=== PATIENT | male | born 1980 | race Caucasian/White ===

== ENCOUNTER 2023-06-13 16:45 | Inpatient (IN) | payer BC, SELFPAY ==
[2023-06-13] VITALS (24 sets, daily range): BP systolic 105–165; BP diastolic 56–103; PULSE 13–83; RESP 11–29; TEMP 36.8–37.9; O2SAT 93–100; BMI 28.7; BMI 29.2
--- NOTE | 2023-06-13 | ECG_ITS ---
Test Reason : Altered Mental Blood Pressure : / mmHG Vent. Rate : 076 BPM Atrial Rate : 076 BPM P-R Int : 162 ms QRS Dur : 102 ms QT Int : 398 ms P-R-T Axes : 062 065 041 degrees QTc Int : 447 ms Normal sinus rhythm Minimal voltage criteria for LVH, may be normal variant ( Sokolow-Spears ) Nonspecific ST and T wave abnormality Abnormal ECG When compared with ECG of 19-SEP-2018 21:21, T wave inversion now evident in Lateral leads Referred By: Christophe Pedro Electronically Signed By:DANAE CHAVEZ MD
--- NOTE | ~2023-06-13 | CT_ITS ---
EXAMINATION: CT HEAD WITHOUT CONTRAST CLINICAL INFORMATION: Change in mental status COMPARISON: None available. TECHNIQUE: Contiguous axial imaging was performed from the skull base to vertex without intravenous administration of contrast. This CT examination was performed using dose optimization techniques as appropriate, variously including the following: *Automated exposure control *Adjustment of mA and/or kV according to patient size (this includes techniques or standardized protocols for targeted exams where dose is matched to indication/reason for exam; i.e. extremities or head) *Use of iterative reconstruction technique DLP: 778 mGy-cm FINDINGS: There is no evidence of acute intracranial hemorrhage or territorial infarction. No abnormal mass effect or midline shift is seen. Martinez to white matter differentiation is well preserved. No extra-axial fluid collections are identified. The ventricles are normal in size. There is no abnormal attenuation within the brain parenchyma. The osseous structures and soft tissues are normal. Mucoperiosteal thickening bilateral maxillary and sphenoid sinuses, left greater than right. The mastoid air cells and visualized portions of the paranasal sinuses are well aerated. CT/CT head/brain wo IV con IMPRESSION: 1. No acute intracranial pathology. 2. Mucoperiosteal thickening bilateral maxillary and sphenoid sinuses, left greater than right.
--- NOTE | ~2023-06-13 | XR_ITS ---
EXAMINATION: PORTABLE CHEST 1 VIEW CLINICAL INFORMATION: Change in mental status rule out pneumonia. COMPARISON: No recent pertinent prior studies are available for comparison. TECHNIQUE: Portable frontal view of the chest was obtained. FINDINGS: The lungs are hypoexpanded with basilar markings more likely due to atelectasis. No focal infiltrate, effusion, edema, or pneumothorax. Cardiac and mediastinal silhouettes are within normal limits for technique. No acute bony abnormality seen. XR/XR chest 1V IMPRESSION: Hypoexpanded with basilar markings more likely due to atelectasis.
--- NOTE | ~2023-06-13 | MR_ITS ---
EXAMINATION: MR BRAIN WITHOUT AND WITH CONTRAST CLINICAL INFORMATION: meningitis, new onset deafness, facial droop COMPARISON: None TECHNIQUE: Multiplanar multisequence MR imaging of the brain was obtained without and following the administration of 9 mL Gadavist intravenous contrast. FINDINGS: Motion degraded examination. There is layering diffusion restricting debris within the occipital horns of the lateral ventricles, compatible with pyogenic ventriculitis. No abnormal ependymal enhancement. There is some corresponding FLAIR hyperintense signal the periventricular white matter along the occipital horns. Small regions of diffusion restriction and corresponding FLAIR hyperintense signal involving the cortex of the posterior inferior left temporal lobe, medial right occipital lobe, and right greater than left cerebellar hemispheres most prominently involving the posteromedial right cerebellar hemisphere are compatible with acute infarct and/or cerebritis. Multifocal sulcal FLAIR CSF nonsuppression, likely reflecting leptomeningitis. No definite corresponding abnormal leptomeningeal enhancement. There is no intracranial hemorrhage on iron-sensitive imaging. No extra-axial collection or mass effect/herniation. No hydrocephalus. The ventricles are normal in morphology and size. No abnormal parenchymal or extra-axial enhancement. The midline structures are normal. The cerebellar tonsils are normally positioned. The craniocervical junction is normal. Marrow signal is within normal limits. The visualized soft tissues are without significant abnormality. No signal abnormality within the paranasal sinuses or within the mastoid air cells. MR/MR head/brain wo/w con IMPRESSION: Motion degraded examination 1. Diffusion restricting layering debris within the occipital horns of the lateral ventricles is compatible with pyogenic ventriculitis. 2. Multifocal sulcal CSF FLAIR nonsuppression, likely reflecting leptomeningitis. 3. Multifocal small regions of parenchymal diffusion restriction and FLAIR hyperintense signal involving the medial right occipital lobe, posterior inferior left temporal lobe, and cerebellar hemispheres are compatible with acute infarcts and/or cerebritis. Above impression was communicated to Opal Cueto NP on 06/15/2023 9:35 PM
--- NOTE | 2023-06-13 17:03 | ECG_ITS ---
Test Reason : ALTERED MENTAL Blood Pressure : / mmHG Vent. Rate : 066 BPM Atrial Rate : 066 BPM P-R Int : 162 ms QRS Dur : 104 ms QT Int : 434 ms P-R-T Axes : 000 121 152 degrees QTc Int : 454 ms Normal sinus rhythm with sinus arrhythmia Right axis deviation Nonspecific T wave abnormality Abnormal ECG When compared with ECG of 13-JUN-2023 17:35, QRS axis Shifted right T wave inversion more evident in Lateral leads Referred By: Christophe Pedro Electronically Signed By:DANAE CHAVEZ MD
--- NOTE | 2023-06-13 17:04 | ED.AMS ---
HPI - Altered Mental Status General Chief Complaint: Altered Mental Status Stated Complaint: AMS,PSYCHOSIS,COMBATIVE Time Seen by Provider: 06/13/23 16:54 Source: family (, [place]) Mode of arrival: EMS Limitations: altered mental status History of Present Illness HPI narrative: 42-year-old male with a history of hypertension who presents emergency department for evaluation of altered mental status and delirium. The information came from his who is here in the emergency department. The patient has not been feeling well since Thursday06/10/2023 (4 days). According to his he went to work on Thursday and but did not feel well. On he came home and went to bed which was very unusual for him. He then slept all day. He may have had a subjective fever and chills at home but no other symptoms. Today, at around 13:00 he had difficulty talking and appeared to be altered. states that over the past several days he has had very little appetite but has been drinking water and Gatorade. The called an ambulance and the patient was delirious and combative and was brought in in restraints. When I evaluated him he was nonverbal, he did not respond to verbal instructions the patient had nuchal rigidity. Related Data Allergies Allergy/AdvReac Type Severity Reaction Status Date / Time diazepam [From VALIUM] Allergy Unknown UNKNOWN Unverified 01/26/20 18:24 Review of Systems Review of Systems: Yes all other systems are reviewed and are negative [facility]LY [facility] Social History Social History Household Members: Spouse Housing: House Do you presently have visiting nurse or other home services: No Patient Tobacco Use Status: Never used Tobacco Use of substances other than those prescribed or required for medical reasons: No Advance Directives: No Advance Directives Information Provided: No Recently lost weight without trying: Unsure Poor oral hygiene: No Physical Exam ED Vital Signs: Vital Signs - 24 hr 06/13/23 16:55 06/13/23 17:16 06/13/23 17:20 Temperature 98.3 F Pulse Rate 76 83 75 Respiratory Rate 28 H 16 28 H Blood Pressure 164/78 H 156/72 H 165/103 H Pulse Oximetry 98 100 100 Oxygen Delivery Method Room Air Room Air Room Air 06/13/23 17:25 06/13/23 18:42 06/13/23 18:50 Temperature Pulse Rate 68 67 70 Respiratory Rate 20 29 H 11 L Blood Pressure 147/90 H 147/73 H 105/85 Pulse Oximetry 98 100 96 Oxygen Delivery Method Room Air 06/13/23 18:57 06/13/23 19:20 06/13/23 19:25 Temperature 100 F Pulse Rate 67 73 71 Respiratory Rate 26 H 28 H 26 H Blood Pressure 123/65 134/73 115/76 Pulse Oximetry 96 93 100 Oxygen Delivery Method Room Air Room Air 06/13/23 19:35 06/13/23 19:40 06/13/23 19:45 Temperature 100.2 F 100 F 100 F Pulse Rate 73 69 13 L Respiratory Rate 26 H 27 H 27 H Blood Pressure 109/67 120/67 125/73 Pulse Oximetry 100 100 99 Oxygen Delivery Method Room Air Room Air Room Air 06/13/23 19:50 06/13/23 19:55 Temperature 100 F 99.9 F Pulse Rate 68 67 Respiratory Rate 26 H 27 H Blood Pressure 121/66 112/56 L Pulse Oximetry 99 98 Oxygen Delivery Method Room Air Room Air BMI result Body Mass Index 28.7 Vital signs were normal except for an elevated blood pressure. Exam: General: Patient is awake answering questions, he staring off into space, he is holding his arms up in the air Head: Normocephalic, atraumatic EENT: PERRL, Lids normal, sclera normal, conjunctiva normal, nose normal , ears normal, throat without erythema or exudates Neck: Neck is rigid Lung: breath sounds symmetric, no wheezing, rales or rhonchi Chest: symmetric movement, nontender Heart: regular rate and rhythm, normal S1, S2 no murmurs or rubs Abdomen: soft, non-tender, nondistended, normal bowel sounds Extremities: no deformities, patient's minimally moves his extremities in this stated above he is holding arms up in the Skin: no rashes, no lesion, normal color and warmth Neuro: Patient does not respond to verbal commands, he is nonverbal, in the emergency department he has not been combative Medications Administered Generic Name Dose Route Start Last Admin Trade Name Freq PRN Reason Stop Dose Admin Cefepime HCl 2 gm/ Sodium 50 mls @ 100 mls/hr 06/13/23 21:00 06/13/23 21:57 Chloride IV Infused Q8H MARIANELA Infusion Ampicillin Sodium 2 gm/ Sodium 100 mls @ 200 mls/hr 06/13/23 21:00 06/13/23 21:51 Chloride IV Infused Q4H MARIANELA Infusion Lactated Ringer's 1,000 mls @ 100 mls/hr 06/13/23 22:00 06/13/23 22:15 Lr IVCONT 100 mls/hr .Q10H MARIANELA Administration Discontinued Medications Generic Name Dose Route Start Last Admin Trade Name Freq PRN Reason Stop Dose Admin Enoxaparin Sodium 40 mg 06/13/23 20:00 06/13/23 21:21 Enoxaparin Sodium 40 Mg/0.4 Ml Syringe SUBCUT Not Given Q24H MARIANELA Haloperidol Lactate 5 mg 06/13/23 17:01 06/13/23 17:09 Haloperidol Lactate 5 Mg/Ml Vial IVPUSH 06/13/23 17:02 5 mg ONCE ONE Administration Haloperidol Lactate 5 mg 06/13/23 17:17 06/13/23 17:34 Haloperidol Lactate 5 Mg/Ml Vial IVPUSH 06/13/23 17:18 5 mg STAT STA Administration Sodium Chloride 1,000 mls @ 999 mls/hr 06/13/23 17:03 06/13/23 17:53 Ns IV 06/13/23 18:03 Infused .Q1H1M STA Infusion Ceftriaxone Sodium 2 gm/ 50 mls @ 100 mls/hr 06/13/23 17:06 06/13/23 18:00 Sodium Chloride IV 06/13/23 17:35 Infused ONCE STA Infusion Sodium Chloride 2,721.54 mls @ 2,721.54 mls/hr 06/13/23 17:29 06/13/23 20:03 Ns 30 ml/kg infuse over 1 hr (2721.54 ml) 06/13/23 18:28 Infused IV Infusion .Q1H STA Potassium Chloride 10 meq in 100 mls @ 100 mls/hr 06/13/23 18:00 06/13/23 20:03 Potassium Chloride/H20 IV 06/13/23 19:59 Infused Q1H MARIANELA Infusion Vancomycin HCl 2,000 mg in 520 mls @ 250 mls/hr 06/13/23 19:01 06/13/23 22:18 Vancomycin/Ns IV 06/13/23 21:05 Infused ONCE ONE Infusion Acyclovir Sodium 800 mg/ 266 mls @ 266 mls/hr 06/13/23 19:02 06/13/23 21:19 Sodium Chloride IV 06/13/23 19:03 Infused ONCE ONE Infusion Ketamine HCl 100 mg 06/13/23 18:22 06/13/23 20:01 Ketamine Hcl/Ns 50 Mg/5 Ml Syringe IVPUSH 06/13/23 18:23 Not Given ONCE ONE Midazolam HCl 4 mg 06/13/23 17:01 06/13/23 17:10 Midazolam Hcl/Pf 2 Mg/2 Ml Vial IVPUSH 06/13/23 17:02 4 mg ONCE ONE Administration Medical Decision Making Medical Decision Making MDM Narrative: 42-year-old male with a history of hypertension who presents emergency department for evaluation of altered mental status and delirium. Patient has been sick for approximately 4 days with possible viral-like illness with delirium that started today, patient was combative initially but here in the emergency department was awake, altered and cooperative. He is nonverbal and not following commands. He does have nuchal rigidity. His exam is otherwise unremarkable. At this time I am concerned the patient may have bacterial versus viral meningitis. Differential diagnosis: Includes was not limited to bacterial meningitis, viral meningitis, encephalitis, electrolyte abnormalities, anemia, alcohol intoxication, drug use disorder Following evaluation was ordered: CT scan of the brain without IV contrast, chest x-ray one view, CBC, CMP, lipase, troponin, TSH with reflex T4, ESR, ethanol level, lactic acid, PTT, COVID, influenza, RSV, urinalysis, urine osmolality, serum osmolality, lactic acid, blood cultures x2. Meningitis/ encephalitis panel, CSF glucose, CSF protein, Gram stain Patient was treated with the following: Normal saline bolus 30 cc/kilogram, ceftriaxone 2 g IV, vancomycin 2 g IV, acyclovir 10 milligrams/kilogram (800 mg IV), Haldol 5 mg IV x2, Versed 4 mg IV x1 19:19 My interpretation patient's laboratory evaluation is as follows: WBC elevated 18,600 with 87 neutrophils and on 3 lymphocytes. Sodium low 126, bicarb low 15, glucose elevated 197. Calcium low 7.6. LFTs were normal. Urinalysis revealed positive protein, positive glucose, positive blood negative nitrates negative leukocyte esterase. Microscopic was unremarkable with no bacteria seen. Urine drug screen was positive for benzodiazepines but the patient did receive Versed IV for sedation. Alcohol was below detectable limits. COVID-19, influenza and RSV were negative. CSF WBCs elevated 253 with 88% neutrophils and 3% lymphocytes, 9% monocytes. CSF glucose was below detectable limits CSF protein was elevated at 661. G stain revealed no organisms. CT scan of the brain revealed no acute abnormalities Chest x-ray revealed no evidence of pneumonia The case was discussed with the bilingual call center representative and the patient will be admitted to the intensive care unit for further management and diagnostic workup for meningitis. Please note that the patient did not receive ketamine for procedural sedation since I was able to do the lumbar puncture with the initial sedated with Haldol 10 mg IV and Versed 4 mg IV that was given upon the patient's arrival to the emergency department. Admission/Observation Consideration of admission/observation: Escalation of care including admission/observation considered Consult Healthcare Provider Management of the patient was discussed with: Igniter Assembler (Maintenance Technician 2Nd Shift, Dr. Reid) Lab Data MDM Lab Attestation statement: I reviewed the patient's lab results. 06/13/23 22:02 06/13/23 22:02 Labs: Lab Results 06/13/23 06/13/23 06/13/23 Range/Units 17:06 17:07 17:08 WBC 18.6 H (4.8-10.8) X10*3/uL RBC 3.85 L (4.60-5.80) X10*6/uL Hgb 12.0 L (14.0-18.0) g/dl Hct 33.0 L (42.0-52.0) % MCV 85.7 (80.0-98.0) fL MCH 31.2 (27.0-33.0) pg MCHC 36.4 H (31.0-36.0) g/dl RDW 12.9 (11.0-16.0) % Plt Count 153 L (160-400) X10*3/uL MPV 9.6 (9.4-12.4) fL Immature Gran % (Auto) 0.5 H (0.0-0.4) % Neut % (Auto) 87.5 H (45-73) % Lymph % (Auto) 3.5 L (20-40) % [place] % (Auto) 8.1 (2-11) % Eos % (Auto) 0.1 (0-4) % Baso % (Auto) 0.3 (0-2) % Lymph # (Auto) 0.7 L (1.2-4.9) X10*3/uL [place] # (Auto) 1.5 H (0.1-1.2) X10*3/uL Eos # (Auto) 0.0 (0.0-0.4) X10*3/uL Baso # (Auto) 0.1 (0.0-0.2) X10*3/uL Abs Immat Gran (auto) 0.09 H (0.00-0.03) X10*3/uL Absolute Neuts (auto) 16.3 H (2.0-8.3) x10*3/uL Absolute Nucleated RBC 0.000 (0.0-0.012) X10*3/uL Nucleated RBC % (auto) 0.0 (0.0-0.2) /100WBC Smear Tech's Comments VERIFIED ESR 81 H (0-15) MM/HR PT 12.8 (11.1-13.3) SEC INR 1.1 (0.9-1.1) APTT 24.3 L (26.0-36.8) SEC Sodium 126 L (135-145) mmol/L Potassium 2.9 L* (3.3-5.1) mmol/L Chloride 91 L (96-108) mmol/L Carbon Dioxide 15 L (22-29) mmol/L Anion Gap 23 H (12-20) BUN 13 (9-16) mg/dL Creatinine 0.93 (0.5-1.4) mg/dL Estim Creat Clear Calc 119.6 Estimated GFR > 60 Random Glucose 214 H (60-115) mg/dL Osmolality (281-305) mosm/kg Lactic Acid 6.8 H* (0.5-2.0) mmol/L Lactic Acid F/U @ 2Hr (0.5-2.0) mmol/L Calcium 8.6 (8.4-10.2) mg/dL Phosphorus 1.9 L (2.7-4.5) mg/dL Magnesium 1.8 (1.6-2.6) mg/dL Total Bilirubin 0.8 (0.0-1.0) mg/dL AST 27 (5-37) U/L ALT 20 (0-40) U/L Alkaline Phosphatase 51 (39-117) U/L Total Creatine Kinase 144 (38-174) U/L Troponin I High Sens 18.5 (<3.5-35.0) ng/L Total Protein 7.7 (6.5-8.0) g/dL Albumin 3.8 (3.5-5.0) g/dL Lipase 6 L (8-78) U/L TSH 0.82 (0.32-4.0) uIU/mL Urine Color Urine Appearance Urine pH (5.0-9.0) Ur Specific [place] (1.005-1.025) Urine Protein (Neg-Trace) mg/dL Urine Glucose (UA) (Negative) mg/dL Urine Ketones (Negative) mg/dL Urine Blood (Negative) Urine Nitrite (Negative) Ur Leukocyte Esterase (Negative) Urine RBC (0-2) /HPF Urine WBC (0-5) /HPF Ur Squamous Epith Cells (0-2) /HPF Urine Bacteria (None Seen) Hyaline Casts (0-2) /LPF Urine Osmolality (373-1093) mosm/kg Ur Random Sodium mmol/L CSF Tube Number CSF Volume ML CSF Appearance CSF Color CSF WBC MM*3 CSF RBC MM*3 CSF Neutrophils % CSF Lymphocytes % CSF Monocytes % % CSF Appearance (b) CSF Glucose mg/dL CSF Total Protein (15-45) mg/dL Urine Opiates Screen (Not Detect) Urine Fentanyl Screen (Not Detect) Ur Barbiturates Screen (Not Detect) Ur Phencyclidine Scrn (Not Detect) Ur Amphetamines Screen (Not Detect) U Benzodiazepines Scrn (Not Detect) Urine Cocaine Screen (Not Detect) U Marijuana (THC) Screen (Not Detect) Ethyl Alcohol < 10 mg/dL Influenza Type A (ANDREW) Negative (Negative) Influenza Type A (PCR) (Negative) Influenza Type B (ANDREW) Negative (Negative) Influenza Type B (PCR) (Negative) Influenza A & B Note See Note RSV RNA Qual (PCR) (Negative) SARS-CoV-2 RNA (RT-PCR) (Negative) 06/13/23 06/13/23 06/13/23 Range/Units 19:03 19:03 19:35 WBC (4.8-10.8) X10*3/uL RBC (4.60-5.80) X10*6/uL Hgb (14.0-18.0) g/dl Hct (42.0-52.0) % MCV (80.0-98.0) fL MCH (27.0-33.0) pg MCHC (31.0-36.0) g/dl RDW (11.0-16.0) % Plt Count (160-400) X10*3/uL MPV (9.4-12.4) fL Immature Gran % (Auto) (0.0-0.4) % Neut % (Auto) (45-73) % Lymph % (Auto) (20-40) % Bradford % (Auto) (2-11) % Eos % (Auto) (0-4) % Baso % (Auto) (0-2) % Lymph # (Auto) (1.2-4.9) X10*3/uL [place] # (Auto) (0.1-1.2) X10*3/uL Eos # (Auto) (0.0-0.4) X10*3/uL Baso # (Auto) (0.0-0.2) X10*3/uL Abs Immat Gran (auto) (0.00-0.03) X10*3/uL Absolute Neuts (auto) (2.0-8.3) x10*3/uL Absolute Nucleated RBC (0.0-0.012) X10*3/uL Nucleated RBC % (auto) (0.0-0.2) /100WBC Smear Tech's Comments ESR (0-15) MM/HR PT (11.1-13.3) SEC INR (0.9-1.1) APTT (26.0-36.8) SEC Sodium (135-145) mmol/L Potassium (3.3-5.1) mmol/L Chloride (96-108) mmol/L Carbon Dioxide (22-29) mmol/L Anion Gap (12-20) BUN (9-16) mg/dL Creatinine (0.5-1.4) mg/dL Estim Creat Clear Calc Estimated GFR Random Glucose (60-115) mg/dL Osmolality 269 L (281-305) mosm/kg Lactic Acid (0.5-2.0) mmol/L Lactic Acid F/U @ 2Hr 2.0 (0.5-2.0) mmol/L Calcium (8.4-10.2) mg/dL Phosphorus (2.7-4.5) mg/dL Magnesium (1.6-2.6) mg/dL Total Bilirubin (0.0-1.0) mg/dL AST (5-37) U/L ALT (0-40) U/L Alkaline Phosphatase (39-117) U/L Total Creatine Kinase (38-174) U/L Troponin I High Sens (<3.5-35.0) ng/L Total Protein (6.5-8.0) g/dL Albumin (3.5-5.0) g/dL Lipase (8-78) U/L TSH (0.32-4.0) uIU/mL Urine Color Yellow Urine Appearance Clear Urine pH 6.0 (5.0-9.0) Ur Specific [place] 1.020 (1.005-1.025) Urine Protein 30 (1+) H (Neg-Trace) mg/dL Urine Glucose (UA) >=1000 H (Negative) mg/dL Urine Ketones >=160 (Negative) mg/dL Urine Blood Small (1+) H (Negative) Urine Nitrite Negative (Negative) Ur Leukocyte Esterase Negative (Negative) Urine RBC 0-2 (0-2) /HPF Urine WBC 0-5 (0-5) /HPF Ur Squamous Epith Cells 0-2 (0-2) /HPF Urine Bacteria None Seen (None Seen) Hyaline Casts 0-2 (0-2) /LPF Urine Osmolality 532 (373-1093) mosm/kg Ur Random Sodium 116.0 mmol/L CSF Tube Number 2 4 CSF Volume 1.0 ML CSF Appearance CLOUDY CSF Color YELLOW CSF WBC 253 H* MM*3 CSF RBC 151 MM*3 CSF Neutrophils 88 % CSF Lymphocytes 3 % CSF Monocytes % 9 % CSF Appearance (b) Hazy CSF Glucose < 3 mg/dL CSF Total Protein 661.2 H (15-45) mg/dL Urine Opiates Screen Not Detected (Not Detect) Urine Fentanyl Screen Not Detected (Not Detect) Ur Barbiturates Screen Not Detected (Not Detect) Ur Phencyclidine Scrn Not Detected (Not Detect) Ur Amphetamines Screen Not Detected (Not Detect) U Benzodiazepines Scrn POSITIVE H (Not Detect) Urine Cocaine Screen Not Detected (Not Detect) U Marijuana (THC) Screen Not Detected (Not Detect) Ethyl Alcohol mg/dL Influenza Type A (ANDREW) (Negative) Influenza Type A (PCR) NEGATIVE (Negative) Influenza Type B (ANDREW) (Negative) Influenza Type B (PCR) NEGATIVE (Negative) Influenza A & B Note RSV RNA Qual (PCR) NEGATIVE (Negative) SARS-CoV-2 RNA (RT-PCR) NEGATIVE (Negative) Independent Interpretation I performed an independent interpretation of an: Plain X-Ray Interpretation: My independent interpretation patient's chest x-ray is as follows: No acute disease Radiology Impression Discussion of test interpretation with radiology: I have reviewed the radiologist's reading. Radiologist Impression: CT head/brain wo IV con IMPRESSION: 1. No acute intracranial pathology. 2. Mucoperiosteal thickening bilateral maxillary and sphenoid sinuses, left greater than right. Dictated By: Jesus Manuel Kidd MD XR chest 1V IMPRESSION: Hypoexpanded with basilar markings more likely due to atelectasis. Dictated By: Giovanny De Leon MD Independent Historian Clinical information obtained from an independent historian. History obtained from or confirmed by: Spouse and Parent Procedures Lumbar Puncture Time Out Performed: No Patient Position: left lateral decubitus Skin Prep: Povidone-Iodine 1% Local Anesthetic: lidocaine 1% Amount of anesthesia used (mL): 3 Spinal Needle Gauge: 20G Interspace Used: L4-L5 Fluid Initially Obtained: cloudy Complications: none Critical Care Time Critical Care Time Critical Care Time: Yes Total Critical Care Time: 45 Attestation: Critical Care: The patient was critically ill with a high probability of imminent or life threatening deterioration. I spent greater than 30 minutes of discontinuous time evaluating the patient,delivering critical care at the bedside, discussing and evaluating pertinent data with consultants. Critical care time does not include time spent performing separately billable procedures or teaching. Total time spent performing critical care was 45 minutes. Discharge Plan Discharge Clinical Impression: Bacterial meningitis Patient Disposition: Admitted As Inpatient Interventions: Admission Worksheet (ED) Last Done: 06/13/23 20:50 Discharge Date/Time: 06/13/23 20:50
[2023-06-13] MEDS: Haloperidol Lactate 5 MG/ML VIAL IVPUSH ×2 (17:09→17:34)
[2023-06-13] MEDS: Midazolam HCl/PF 2 MG/2 ML VIAL 4 MG IVPUSH (17:10)
[2023-06-13 17:14] LABS: Basophils Absolute Auto 0.1 X10*3/uL (0.0-0.2); Basophils Percent Auto 0.3 % (0-2); Eosinophils Percent Auto 0.1 % (0-4); Imm Gran Abs Auto 0.09 X10*3/uL (0.00-0.03); Imm Gran Pct Auto 0.5 % (0.0-0.4); Lymphocytes Absolute Auto 0.7 X10*3/uL (1.2-4.9); Lymphocytes Percent Auto 3.5 % (20-40); MANUAL DIFF FLAG SCAN; Mean Corpuscular HGB Conc 36.4 g/dl (31.0-36.0); Mean Corpuscular Hemoglobin 31.2 pg (27.0-33.0); Mean Corpuscular Volume 85.7 fL (80.0-98.0); Mean Platelet Volume 9.6 fL (9.4-12.4); Monocytes Absolute Auto 1.5 X10*3/uL (0.1-1.2); Monocytes Percent Auto 8.1 % (2-11); Neutrophils Absolute Auto 16.3 x10*3/uL (2.0-8.3); Neutrophils Percent Auto 87.5 % (45-73); Platelet Count 153 X10*3/uL (160-400); Red Blood Count 3.85 X10*6/uL (4.60-5.80); Red Cell Distribution Width 12.9 % (11.0-16.0); SCAN SMEAR FLAG 1; White Blood Count 18.6 X10*3/uL (4.8-10.8)
[2023-06-13] MEDS: 0.9 % Sodium Chloride 1,000 ML 999 ML IV (17:16)
[2023-06-13 17:24] LABS: Partial Thromboplastin Time 24.3 SEC (26.0-36.8)
[2023-06-13] MEDS: cefTRIAXone sodium 2 GM in 0.9 % Sodium Chloride 50 ML IV (17:28)
[2023-06-13 17:29] LABS: Lactic Acid 6.8 mmol/L (0.5-2.0)
[2023-06-13] MEDS: 0.9 % Sodium Chloride 2,721.54 ML 2721.54 ML IV (17:30)
[2023-06-13 17:31] LABS: Alanine Aminotransferase 20 U/L (0-40); Albumin Level 3.8 g/dL (3.5-5.0); Alkaline Phosphatase 51 U/L (39-117); Anion Gap 23 (12-20); Aspartate Amino Transferase 27 U/L (5-37); Bilirubin Total 0.8 mg/dL (0.0-1.0); Blood Urea Nitrogen 13 mg/dL (9-16); Calcium 8.6 mg/dL (8.4-10.2); Carbon Dioxide 15 mmol/L (22-29); Chloride 91 mmol/L (96-108); Creatinine Clr Calc Pharmacy 119.6; Estimated Glomerular Filt Rate > 60; Ethanol < 10 mg/dL; Glucose Random 214 mg/dL (60-115); Lipase 6 U/L (8-78); Potassium 2.9 mmol/L (3.3-5.1); Sodium 126 mmol/L (135-145); Total Protein 7.7 g/dL (6.5-8.0)
[2023-06-13 17:36] LABS: Troponin-I High Sensitivity 18.5 ng/L (<3.5-35.0)
[2023-06-13 17:46] LABS: IDNOW Serial# 58CA691E; Influenza A Negative (Negative); Influenza B2 Negative (Negative)
[2023-06-13 17:52] LABS: SLIDE REVIEW VERIFIED
[2023-06-13] MEDS: Potassium Chloride/H20 10 MEQ/100 ML PIGGYBACK 100 MEQ IV ×2 (17:55→18:55)
[2023-06-13 19:11] LABS: Reflex Lactate? Lactic Acid Added
--- NOTE | 2023-06-13 19:30 | PC.NURSE ---
assumed care of pt 1899. Dr. Nazario completed bedside LP. 06/12 IV K hung IVF infusing. temp sensing guerra placed afebrile. vss. pt responsive to painful stimuli. resp even and unlabored. pt repositioned in bed. labs obtained by [facility]. urine sent to lab. restraints off when assumed care. skin intact.
[2023-06-13 19:40] LABS: TSH reflex Free T4 0.82 uIU/mL (0.32-4.0)
[2023-06-13 19:41] LABS: Appearance CSF CLOUDY; CSF Tube # 4
[2023-06-13 19:42] LABS: Color CSF YELLOW; Red Blood Cell CSF 151 MM*3
[2023-06-13 19:49] LABS: CSF Appearance Hazy; CSF Tube # 2
[2023-06-13 19:52] LABS: White Blood Cell CSF 253 MM*3
[2023-06-13 19:53] LABS: CSF Monos 9 %; Lymphocytes CSF 3 %; Neutrophils CSF 88 %
[2023-06-13 20:07] LABS: Influenza A PCR NEGATIVE (Negative); Influenza B PCR NEGATIVE (Negative); Resp Syncy Virus RNA Qual PCR NEGATIVE (Negative); SARS COV2 PCR INHOUSE NEGATIVE (Negative)
[2023-06-13 20:10] LABS: Osmolality, Serum 269 mosm/kg (281-305)
[2023-06-13 20:10] LABS: Glucose CSF < 3 mg/dL; Osmolality Urine 532 mosm/kg (373-1093); Total Protein CSF 661.2 mg/dL (15-45)
--- NOTE | 2023-06-13 20:21 | PC.NURSE ---
pt medicated per mar.
--- NOTE | 2023-06-13 20:24 | PM.CCHP ---
History of Present Illness Date of Service: 06/13/23 Attending physician on admission: Mirna Reid Chief Complaint: Acute Sepsis and Baterial meningitis HPI: ?Patient is a 42-year-old male with underlying history of hypertension, who presented via EMS due to altered mental status and delirium as reported by his in the emergency room.? Reportedly patient had been feeling sick for the past 4 days, he had been feeling weak and tired, had low appetite but had been drinking water and Gatorade. ?and came back from work which is unusual from him.? Had slept a whole day on and reported having some fever and chills.? Today apparently around 01:00 o'clock in the afternoon he had some difficulty talking appeared to be confused, she then called the ambulance.? ER personnel noted the patient was nonverbal and had nuchal rigidity.? Otherwise hemodynamically stable. In the emergency room his workup revealed a white count of 18.6, which then increased to 9.6 with 35% bands, ESR of 81, sodium of 126, potassium 2.9, chloride 91, BUN 13, creatinine 0.98, osmolality 269, lactic acid 6.8 followed by 2.0, phosphorus 1.9, magnesium 1.8.? CT scan of the head revealed no intracranial abnormalities, he did have an LP done which according to ER physician's report is showed very cloudy CSF, it is further analysis reveals 253 MM*3 per high-power field, total protein 661, glucose less than 3; all of which is concerning for acute bacterial meningitis. Patient was treated with acyclovir, Rocephin vancomycin.? He was given 3 L of fluid.? Given his significant agitation Haldol and Versed had been given, were then called for admission. During my evaluation, the patient is completely obtunded, nonverbal and heart rate response to any verbal stimuli including sternal rub. ROS:? Unable to obtain Past Medical History:? As above Past Surgical History:? None per records Family history:? Noncontributory Social History:? Lives at? at home with his , no history of tobacco, alcohol or drugs. CODE STATUS: FULL CODE Allergies: ?Volume (unknown) Home Medications: See Med Rec Sepsis PHYSICAL EXAM done at a p.m.: VS: ?112/56, 67, 27, 98% on room air, 99.9. General:? Completely obtunded, responds minimally to painful stimuli, breathing on his own, no distress. Skin:? Intact, no lesions, edema, erythema, clubbing or cyanosis.? No ulcers. HEENT:? Head is normocephalic, atraumatic, pupils equal round reactive to light accommodation bilaterally.? Extraocular movements appear intact.? Buccal mucosa is moist, Neck is supple without lymphadenopathy. Cardiac:? Clear S1-S2, no murmurs rubs or gallops. Pulmonary:? Clear to auscultation, no wheezes, rales or rhonchi. Abdomen:? Protuberant, positive bowel sounds in all 4 quadrants.? Soft, nontender, no rebound or guarding.? Musculoskeletal:? There is no voluntary movement of the extremities.? Passive range of motion of the upper and lower extremities at the major joints reveals no cogwheeling and no crepitus.? There is no asymmetry or leg edema. Neurologic:? As above, unable to further assess. Vascular:? 2+ pulses upper and lower extremities distally. ?Less than 2nd capillary refill of the finger and toes bilaterally upper and lower extremities. SIGNIFICANT LABORATORY DATA:? As above REVIEW OF IMAGES: Head CT IMPRESSION: 1. No acute intracranial pathology. 2. Mucoperiosteal thickening bilateral maxillary and sphenoid sinuses, left greater than right. CHEST X-RAY IMPRESSION Hypoexpanded lungs with basilar markings more likely due to atelectasis. EKG REVIEW: ?To my view this is sinus rhythm 66 beats per minute.? There is no ST elevations, no ST depressions.? QTC 454. ASSESSMENT : 1.Acute severe sepsis without shock 2. Acute bacterial meningitis rule out viral component 3. Toxic/metabolic encephalopathy due to the above 4. Lactic acidosis due to above 5. Acute hypokalemia 6. Hypoosmolar hypovolemic hyponatremia 7. Hypoalbuminemia 8. Hypophosphatemia 9. Pseudo hypocalcemia with corrected level of 8.96 10. Proteinuria and glucosuria 11. Bilateral maxillary and sphenoid sinusitis left greater than right (questionable if this could be the source) PLAN OF CARE: Patient will be admitted to the ICU, monitor vital signs, I and O's, so far his hemodynamically stable but if this changes he will be started on vasopressors, given history of underlying splenectomy, the patient will be treated with Unasyn, vancomycin, cefepime and acyclovir.? Will await CSF studies and add Lyme testing, listeria studies. Will replace potassium, phosphorus, and albumin.? Will place him on LR for maintenance fluids. If no actual source is found, perhaps seeing him for HIV may be necessary.? Repeat labs in the morning and consult Infectious Disease. One CSF culture and Gram stain his available, antibiotic coverage may be narrowed.? Although we should keep in mind his bilateral sinusitis. GI PROPHYLAXIS:? IV ppi DVT PROPHYLAXIS:? Pneumatic stockings only, will avoid blood thinners for the next 24-48 hours given recent LP. Sepsis follow-up focused exam 2 a.m. 06/14/2023 144/77, 69, 27, 96% on room air Obtunded in no acute distress, responds to painful stimuli. Skin unchanged. Clear S1-S2 no murmurs rubs gallops. Clear lungs bilaterally. Abdomen soft and nontender. There is no voluntary musculoskeletal movement. Vascular 2+ pulses bilaterally upper and lower extremities, less than 2nd capillary refill of the finger and toes upper and lower extremities. Neuro unchanged. At this time, the 1st results of the CSF culture and Gram stain reveals strep pneumo organisms, the patient will continue with the above-mentioned broad-spectrum antibiotics and will discuss the possibility of narrowing them down with Dr. Reid in the morning. Critical care time used for critical evaluation of this patient, diagnosis, treatment and coordination of care, review her records and documentation TOTAL CRITICAL CARE TIME 120 ?MIN . discussion and coordination with consultants, completely separate from any procedures performed. Patient's care was discussed in detail with Dr. Reid is aware of all the above as well as the plan of care for this patient. [facility] Surgical History Surgical History (Updated 06/14/23 @ 02:03 by Toyin Hooks RN) H/O splenectomy Social History Social History Household Members: Spouse Housing: House Do you presently have visiting nurse or other home services: No Patient Tobacco Use Status: Never used Tobacco Use of substances other than those prescribed or required for medical reasons: No Currently Displaying Signs/Symptoms of Drug Intoxication Withdrawal: No Advance Directives: No Advance Directives Information Provided: No Recently lost weight without trying: Unsure Poor oral hygiene: No service: No Meds Allergies Allergy/AdvReac Type Severity Reaction Status Date / Time diazepam [From VALIUM] Allergy Unknown UNKNOWN Unverified 01/26/20 18:24 Active Medications: Current Medications Enoxaparin Sodium (Enoxaparin Sodium 40 Mg/0.4 Ml Syringe) 40 mg SUBCUT Q24H MARIANELA Vancomycin HCl (Vancomycin/Ns) 2,000 mg in 520 mls @ 250 mls/hr IV ONCE ONE Stop: 06/13/23 21:05 Last Admin: 06/13/23 20:03 Dose: 250 mls/hr Cefepime HCl 2 gm/ Sodium (Chloride) 50 mls @ 100 mls/hr IV Q8H MARIANELA Ampicillin Sodium 2 gm/ Sodium (Chloride) 100 mls @ 200 mls/hr IV Q4H MARIANELA Acyclovir Sodium 800 mg/ (Sodium Chloride) 266 mls @ 266 mls/hr IV Q8H MARIANELA Pantoprazole Sodium (Pantoprazole Sodium 40 Mg/10 Ml Vial) 40 mg IVPUSH DAILY@0630 [facility] Pharmacy Consult (Consult Rx Vancomycin Dosing) 1 each MISCELLANE DAILY PRN PRN Reason: Consult order Home Medications Medication Instructions Recorded Confirmed Last Taken Type amlodipine 5 mg-valsartan 160 mg 1 tab PO DAILY 06/14/23 06/14/23 Unknown History tablet Physical Exam Vital Signs: Vital Signs: Last Vital Signs Temp 99.5 F 06/13/23 20:17 Pulse 65 06/13/23 20:17 Resp 22 H 06/13/23 20:17 BP 129/70 06/13/23 20:17 Pulse Ox 97 06/13/23 20:17 O2 Del Method Room Air 06/13/23 20:17 BMI result Body Mass Index 28.7 Results Labs 06/14/23 04:43 06/14/23 11:06 Labs: Laboratory Results - last 24 hr 06/13/23 06/13/23 06/13/23 17:06 17:07 17:08 MCV 85.7 MCH 31.2 MCHC 36.4 H RDW 12.9 Plt Count 153 L MPV 9.6 Immature Gran % (Auto) 0.5 H Neut % (Auto) 87.5 H Lymph % (Auto) 3.5 L Ell[place] % (Auto) 8.1 Eos % (Auto) 0.1 Baso % (Auto) 0.3 Lymph # (Auto) 0.7 L Ell[place] # (Auto) 1.5 H Eos # (Auto) 0.0 Baso # (Auto) 0.1 Abs Immat Gran (auto) 0.09 H Absolute Neuts (auto) 16.3 H Absolute Nucleated RBC 0.000 Nucleated RBC % (auto) 0.0 Smear Tech's Comments VERIFIED APTT 24.3 L Anion Gap 23 H Estim Creat Clear Calc 119.6 Estimated GFR > 60 Random Glucose 214 H Osmolality Lactic Acid 6.8 H* Lactic Acid F/U @ 2Hr Calcium 8.6 Total Bilirubin 0.8 AST 27 ALT 20 Alkaline Phosphatase 51 Total Creatine Kinase 144 Total Protein 7.7 Albumin 3.8 Lipase 6 L TSH 0.82 Urine Osmolality Ur Random Sodium CSF Tube Number CSF Volume CSF Appearance CSF Color CSF WBC CSF RBC CSF Neutrophils CSF Lymphocytes CSF Monocytes % CSF Appearance (b) CSF Glucose CSF Total Protein Ethyl Alcohol < 10 Influenza Type A (ANDREW) Negative Influenza Type A (PCR) Influenza Type B (ANDREW) Negative Influenza Type B (PCR) Influenza A & B Note See Note RSV RNA Qual (PCR) SARS-CoV-2 RNA (RT-PCR) 06/13/23 06/13/23 06/13/23 19:03 19:03 19:35 MCV MCH MCHC RDW Plt Count MPV Immature Gran % (Auto) Neut % (Auto) Lymph % (Auto) Ellsworth % (Auto) Eos % (Auto) Baso % (Auto) Lymph # (Auto) Ellsworth # (Auto) Eos # (Auto) Baso # (Auto) Abs Immat Gran (auto) Absolute Neuts (auto) Absolute Nucleated RBC Nucleated RBC % (auto) Smear Tech's Comments APTT Anion Gap Estim Creat Clear Calc Estimated GFR Random Glucose Osmolality 269 L Lactic Acid Lactic Acid F/U @ 2Hr 2.0 Calcium Total Bilirubin AST ALT Alkaline Phosphatase Total Creatine Kinase Total Protein Albumin Lipase TSH Urine Osmolality 532 Ur Random Sodium 116.0 CSF Tube Number 2 4 CSF Volume 1.0 CSF Appearance CLOUDY CSF Color YELLOW CSF WBC 253 H* CSF RBC 151 CSF Neutrophils 88 CSF Lymphocytes 3 CSF Monocytes % 9 CSF Appearance (b) Hazy CSF Glucose < 3 CSF Total Protein 661.2 H Ethyl Alcohol Influenza Type A (ANDREW) Influenza Type A (PCR) NEGATIVE Influenza Type B (ANDREW) Influenza Type B (PCR) NEGATIVE Influenza A & B Note RSV RNA Qual (PCR) NEGATIVE SARS-CoV-2 RNA (RT-PCR) NEGATIVE Imaging Radiologist's Impressions: Impressions Head CT 06/13/23 17:56 IMPRESSION: 1. No acute intracranial pathology. 2. Mucoperiosteal thickening bilateral maxillary and sphenoid sinuses, left greater than right. Chest X-Ray 06/13/23 18:00 IMPRESSION: Hypoexpanded with basilar markings more likely due to atelectasis.
[2023-06-13 20:28] LABS: INTERNATIONAL NORM RATIO 1.1 (0.9-1.1); Prothrombin Time 12.8 SEC (11.1-13.3)
--- NOTE | 2023-06-13 20:36 | PHA.PROG ---
Admission Date/Time: Indication: [employer] Weight in k.718 kg Serum Creatinine - Last 168 Hours 06/13/23 17:07 Creatinine 0.93 Estimated CrCl and GFR - Last 168 Hours 06/13/23 17:07 Estim Creat Clear Calc 119.6 Estimated GFR > 60 Vancomycin Loading Dose: 2000 Current Vancomycin Dosing Regimen: 1250 Vancomycin Monitoring using AUC goal of 400 - 600 range with trough as surrogate marker: 503 Date and Time for next Vancomycin Level to be drawn: @ 0600 Pharmacist Comments on Vancomycin Plan: Vancomycin dosing will take advantage of [employer] Int as a clinical decision support tool that uses Bayesian modeling to calculate individual patient's pharmacokinetic parameters and forecast the patient's drug concentration time course with the target goal AUC 24 range of 400 - 600 mg/L/hr.
[2023-06-13 20:44] LABS: Magnesium 1.8 mg/dL (1.6-2.6); Phosphorus 1.9 mg/dL (2.7-4.5)
--- NOTE | 2023-06-13 20:47 | PC.NURSE ---
report given to agricultural equipment sales manager.
[2023-06-13 21:04] LABS: Appearance Urine Clear; Color Urine Yellow; Glucose Urine UA >=1000 mg/dL (Negative); Leukocyte Esterase Urine Negative (Negative); Nitrite Urine Negative (Negative); UMIC TRIGGER UACC YES; Urine Blood Small (1+) (Negative); Urine Ketones >=160 mg/dL (Negative); Urine Protein 30 (1+) mg/dL (Neg-Trace)
[2023-06-13 21:08] LABS: Amphetamine Screen Urine Not Detected (Not Detect); Barbiturates, Urine Not Detected (Not Detect); Benzodiazepines Screen Urine POSITIVE (Not Detect); Cannabinoid Screen Urine Not Detected (Not Detect); Cocaine Screen Urine Not Detected (Not Detect); Fentanyl, urine Not Detected (Not Detect); Opiate Screen Urine Not Detected (Not Detect); Phencyclidine Screen Urine Not Detected (Not Detect)
[2023-06-13 21:12] LABS: Bacteria Urine None Seen (None Seen); Hyaline Casts Urine 0-2 /LPF (0-2); RBC Urine 0-2 /HPF (0-2); Squamous Epithelial Cell Urine 0-2 /HPF (0-2); WBC Urine 0-5 /HPF (0-5)
[2023-06-13] MEDS: Ampicillin Sodium 2 GM in 0.9 % Sodium Chloride 100 ML IV (21:20)
[2023-06-13 21:23] LABS: Erythrocyte Sedimentation Rate 81 MM/HR (0-15)
[2023-06-13] MEDS: cefEPime HCl 2 GM in 0.9 % Sodium Chloride 50 ML IV (21:27)
[2023-06-13 22:14] LABS: Prothrombin Time 12.4 SEC (11.1-13.3)
[2023-06-13 22:15] LABS: Hemoglobin 11.3 g/dl (14.0-18.0); PLT CLUMP 1; Red Cell Distribution Width 12.9 % (11.0-16.0)
[2023-06-13] MEDS: Lactated Ringers 1,000 ML 100 ML IVCONT (22:15)
[2023-06-13 22:16] LABS: Hematocrit 30.4 % (42.0-52.0); Mean Corpuscular HGB Conc 37.2 g/dl (31.0-36.0); Mean Corpuscular Hemoglobin 32.2 pg (27.0-33.0); Mean Corpuscular Volume 86.6 fL (80.0-98.0); Mean Platelet Volume 9.5 fL (9.4-12.4); Red Blood Count 3.51 X10*6/uL (4.60-5.80)
[2023-06-13 22:22] LABS: Alanine Aminotransferase 18 U/L (0-40); Albumin Level 3.3 g/dL (3.5-5.0); Alkaline Phosphatase 39 U/L (39-117); Anion Gap 15 (12-20); Aspartate Amino Transferase 24 U/L (5-37); Bilirubin Total 0.5 mg/dL (0.0-1.0); Blood Urea Nitrogen 8 mg/dL (9-16); Calcium 7.6 mg/dL (8.4-10.2); Carbon Dioxide 15 mmol/L (22-29); Chloride 99 mmol/L (96-108); Creatinine Clr Calc Pharmacy 164.8; Estimated Glomerular Filt Rate > 60; Glucose Random 197 mg/dL (60-115); Potassium 3.3 mmol/L (3.3-5.1); Sodium 126 mmol/L (135-145); Total Protein 6.6 g/dL (6.5-8.0)
[2023-06-13 22:43] LABS: White Blood Count 19.6 X10*3/uL (4.8-10.8)
[2023-06-13 22:44] LABS: Acanthocytes 2+ (3-5) /OIF; Band Neutrophils Percent 35 % (3-5); Howell Jolly Bodies PRESENT; Lymphocytes Absolute Manual 0.8 X10*3/uL (1.2-4.9); Lymphocytes Percent Manual 4 % (20-40); Monocytes Absolute Manual 0.6 X10*3/uL (0.1-1.2); Monocytes Percent Manual 3 % (2-11); Neutrophils Absolute Manual 18.2 X10*3/uL (2.0-8.3); Neutrophils Percent Manual 58 % (45-73); RBC Morphology NOTED
[2023-06-13 22:45] LABS: Platelet Estimate NORMAL (NORMAL); Platelet Morphology Comment NORMAL
[2023-06-14] VITALS (27 sets, daily range): BP systolic 93–153; BP diastolic 45–85; PULSE 50–74; RESP 13–28; TEMP 36.4–37.8; O2SAT 93–99; BMI 28.8; BMI 28.3
[2023-06-14] MEDS: Ampicillin Sodium 2 GM in 0.9 % Sodium Chloride 100 ML IV ×6 (00:20→21:22)
[2023-06-14 01:13] LABS: Cryptococcus neoformans/gattii Not Detected (Not Detect.); Enterovirus Not Detected (Not Detect.); Escherichia coli K1 Not Detected (Not Detect.); Haemophilus influenzae Not Detected (Not Detect.); Herpes simplex virus 1 Not Detected (Not Detect.); Herpes simplex virus 2 Not Detected (Not Detect.); Human herpesvirus 6 Not Detected (Not Detect.); Human parechovirus Not Detected (Not Detect.); Listeria monocytogenes Not Detected (Not Detect.); Neisseria meningitidis Not Detected (Not Detect.); Streptococcus agalactiae Not Detected (Not Detect.); Varicella zoster virus Not Detected (Not Detect.)
[2023-06-14 01:18] LABS: Streptococcus pneumoniae Detected (Not Detect.)
[2023-06-14] MEDS: Magnesium Sulfate/H2O 2 GM/50 ML PIGGYBACK IV (01:34)
[2023-06-14] MEDS: Potassium Phosphate/NS 15 MMOL/250 ML PLAST..BAG 62.5 MMOL IV ×3 (01:38→15:01)
[2023-06-14] MEDS: Sodium Bicarbonate 8.4% 50 MEQ/50 ML VIAL IVPUSH ×2 (01:44→03:42)
[2023-06-14 02:15] LABS: Alanine Aminotransferase 18 U/L (0-40); Albumin Level 3.2 g/dL (3.5-5.0); Alkaline Phosphatase 40 U/L (39-117); Anion Gap 15 (12-20); Aspartate Amino Transferase 23 U/L (5-37); Bilirubin Total 0.5 mg/dL (0.0-1.0); Blood Urea Nitrogen 7 mg/dL (9-16); Calcium 7.7 mg/dL (8.4-10.2); Carbon Dioxide 20 mmol/L (22-29); Chloride 97 mmol/L (96-108); Creatinine Clr Calc Pharmacy 167.3; Estimated Glomerular Filt Rate > 60; Glucose Random 169 mg/dL (60-115); Potassium 3.2 mmol/L (3.3-5.1); Sodium 129 mmol/L (135-145); Total Protein 6.6 g/dL (6.5-8.0)
[2023-06-14] MEDS: cefEPime HCl 2 GM in 0.9 % Sodium Chloride 50 ML IV ×3 (04:38→21:58)
[2023-06-14 05:01] LABS: PLT CLUMP 1; Red Cell Distribution Width 12.8 % (11.0-16.0)
[2023-06-14 05:03] LABS: Hematocrit 29.1 % (42.0-52.0); Hemoglobin 10.9 g/dl (14.0-18.0); Mean Corpuscular HGB Conc 37.5 g/dl (31.0-36.0); Mean Corpuscular Hemoglobin 31.9 pg (27.0-33.0); Mean Corpuscular Volume 85.1 fL (80.0-98.0); Red Blood Count 3.42 X10*6/uL (4.60-5.80)
[2023-06-14 05:04] LABS: Platelet Count 140 X10*3/uL (160-400); White Blood Count 21.4 X10*3/uL (4.8-10.8)
[2023-06-14] MEDS: Pantoprazole Sodium 40 MG/10 ML VIAL IVPUSH (05:17)
[2023-06-14 05:19] LABS: Alanine Aminotransferase 16 U/L (0-40); Albumin Level 3.2 g/dL (3.5-5.0); Alkaline Phosphatase 41 U/L (39-117); Anion Gap 14 (12-20); Aspartate Amino Transferase 23 U/L (5-37); Bilirubin Total 0.5 mg/dL (0.0-1.0); Blood Urea Nitrogen 7 mg/dL (9-16); Calcium 7.8 mg/dL (8.4-10.2); Carbon Dioxide 20 mmol/L (22-29); Chloride 98 mmol/L (96-108); Creatinine Clr Calc Pharmacy 164.8; Estimated Glomerular Filt Rate > 60; Glucose Random 154 mg/dL (60-115); Magnesium 2.4 mg/dL (1.6-2.6); Phosphorus 2.2 mg/dL (2.7-4.5); Potassium 3.3 mmol/L (3.3-5.1); Sodium 129 mmol/L (135-145); Total Protein 6.4 g/dL (6.5-8.0)
[2023-06-14 05:22] LABS: Band Neutrophils Percent 11 % (3-5); Lymphocytes Absolute Manual 1.1 X10*3/uL (1.2-4.9); Lymphocytes Percent Manual 5 % (20-40); Monocytes Absolute Manual 0.6 X10*3/uL (0.1-1.2); Monocytes Percent Manual 3 % (2-11); Neutrophils Absolute Manual 19.7 X10*3/uL (2.0-8.3); Neutrophils Percent Manual 81 % (45-73)
[2023-06-14 05:24] LABS: Acanthocytes 2+ (3-5) /OIF; Large Platelet PRESENT; Platelet Estimate SLIGHTLY DECREASED (NORMAL); Platelet Morphology Comment NOTED; RBC Morphology NOTED; Schistocytes 1+ (0-2) /OIF; Spherocytes 1+ (0-2) /OIF
[2023-06-14 05:25] LABS: Burr Cells 2+ (3-5) /OIF; Dohle Bodies PRESENT; Target Cells 1+ (5-14) /OIF; Toxic Granulation PRESENT; Toxic Vacuolation PRESENT
[2023-06-14 05:43] LABS: Erythrocyte Sedimentation Rate 81 MM/HR (0-15)
--- NOTE | 2023-06-14 07:31 | PHA.MEDREC ---
Pharmacy Consult ? Medication Reconciliation Pharmacy has completed the medication reconciliation. Done using claim history Garry
[2023-06-14] MEDS: dexmedeTOMIDidine HCL/NS 400 MCG/100 ML INFUS..BTL 22.78 MCG IVCONT (07:52)
--- NOTE | 2023-06-14 07:55 | PM.CCPN ---
Subjective Subjective Date of Service: 06/14/23 Interval History: admitted to ICU overnight c/f bacterial meningitis Critical Care Time (minutes): 90 Physical Exam Vital Signs: Vital Signs: Last Vital Signs Temp 99.7 F 06/14/23 06:00 Pulse 62 06/14/23 06:00 Resp 26 H 06/14/23 06:00 BP 110/45 L 06/14/23 06:00 Pulse Ox 96 06/14/23 06:00 O2 Del Method Room Air 06/14/23 06:00 BMI result Body Mass Index 28.8 Const: Other: localizes pain to noxious stimulus General: no acute distress, Physically active and confusion Orientation/consciousness: No patient oriented x3 and confusion HEENT: Head: Yes normal to inspection and Yes normocephalic Eyes: General: appearance normal, both eyes and all related structures Neck: Other: unable to assess for brudzinski/kernig signs; neck appears supple Chest: Chest palpation & inspection: normal inspection of the chest Resp: Other: no appreciable rales, rhonchi, wheezing Cardio: Rate: regular rate Rhythm: regular rhythm GI: Inspection: Yes normal to inspection, No Abdominal wall edema and No distended Palpation (GI): Soft to palpation, not firm, nontender, no guarding and not rigid : Male General Exam: Yes normal external exam Skin: General skin exam: no rashes or lesions noted Neuro: General: No patient oriented x3, tone normal, moves all extremities, no focal motor deficits and confusion Extrem: General: Yes normal to inspection and Yes no clubbing, cyanosis or edema Psych: Other: unable to assess Objective Data Labs 06/14/23 04:43 06/14/23 04:43 Labs: Laboratory Results - last 24 hr 06/13/23 06/13/23 06/13/23 17:06 17:07 17:08 WBC 18.6 H RBC 3.85 L Hgb 12.0 L Hct 33.0 L MCV 85.7 MCH 31.2 MCHC 36.4 H RDW 12.9 Plt Count 153 L MPV 9.6 Immature Gran % (Auto) 0.5 H Neut % (Auto) 87.5 H Lymph % (Auto) 3.5 L [place] % (Auto) 8.1 Eos % (Auto) 0.1 Baso % (Auto) 0.3 Lymph # (Auto) 0.7 L [place] # (Auto) 1.5 H Eos # (Auto) 0.0 Baso # (Auto) 0.1 Abs Immat Gran (auto) 0.09 H Absolute Neuts (auto) 16.3 H Absolute Nucleated RBC 0.000 Nucleated RBC % (auto) 0.0 Neutrophils % (Manual) Band Neutrophils % Lymphocytes % (Manual) Monocytes % (Manual) Abs Neuts (Manual) Lymphocytes # (Manual) Monocytes # (Manual) Toxic Granulation Toxic Vacuolation Dohle Bodies Platelet Estimate Large Platelets Plt Morphology Comment RBC Morphology Spherocytes Target Cells [place] Bodies [place] Cells Acanthocytes (Spur) Schistocytes Smear Tech's Comments VERIFIED ESR 81 H PT 12.8 INR 1.1 APTT 24.3 L Sodium 126 L Potassium 2.9 L* Chloride 91 L Carbon Dioxide 15 L Anion Gap 23 H BUN 13 Creatinine 0.93 Estim Creat Clear Calc 119.6 Estimated GFR > 60 Random Glucose 214 H Osmolality Lactic Acid 6.8 H* Lactic Acid F/U @ 2Hr Calcium 8.6 Phosphorus 1.9 L Magnesium 1.8 Total Bilirubin 0.8 AST 27 ALT 20 Alkaline Phosphatase 51 Total Creatine Kinase 144 Troponin I High Sens 18.5 Total Protein 7.7 Albumin 3.8 Lipase 6 L TSH 0.82 Urine Color Urine Appearance Urine pH Ur Specific [place] Urine Protein Urine Glucose (UA) Urine Ketones Urine Blood Urine Nitrite Ur Leukocyte Esterase Urine RBC Urine WBC Ur Squamous Epith Cells Urine Bacteria Hyaline Casts Urine Osmolality Ur Random Sodium CSF Tube Number CSF Volume CSF Appearance CSF Color CSF WBC CSF RBC CSF Neutrophils CSF Lymphocytes CSF Monocytes % CSF Appearance (b) CSF Glucose CSF Total Protein CSF C.neoform/gat PCR CSF CMV DNA (PCR) CSF Enterovirus (PCR) CSF E. coli K1 (PCR) CSF H. influenzae (PCR) CSF HSV I (PCR) CSF HSV II (PCR) CSF HHV 6 (PCR) CSF L.monocytogenes PCR CSF N. meningitidis PCR CSF Parechovirus (PCR) CSF S. agalactiae (PCR) CSF S. pneumoniae (PCR) CSF VZV (PCR) Urine Opiates Screen Urine Fentanyl Screen Ur Barbiturates Screen Ur Phencyclidine Scrn Ur Amphetamines Screen U Benzodiazepines Scrn Urine Cocaine Screen U Marijuana (THC) Screen Ethyl Alcohol < 10 Influenza Type A (ANDREW) Negative Influenza Type A (PCR) Influenza Type B (ANDREW) Negative Influenza Type B (PCR) Influenza A & B Note See Note RSV RNA Qual (PCR) SARS-CoV-2 RNA (RT-PCR) 06/13/23 06/13/23 06/13/23 19:03 19:03 19:35 WBC RBC Hgb Hct MCV MCH MCHC RDW Plt Count MPV Immature Gran % (Auto) Neut % (Auto) Lymph % (Auto) [place] % (Auto) Eos % (Auto) Baso % (Auto) Lymph # (Auto) [place] # (Auto) Eos # (Auto) Baso # (Auto) Abs Immat Gran (auto) Absolute Neuts (auto) Absolute Nucleated RBC Nucleated RBC % (auto) Neutrophils % (Manual) Band Neutrophils % Lymphocytes % (Manual) Monocytes % (Manual) Abs Neuts (Manual) Lymphocytes # (Manual) Monocytes # (Manual) Toxic Granulation Toxic Vacuolation Dohle Bodies Platelet Estimate Large Platelets Plt Morphology Comment RBC Morphology Spherocytes Target Cells [place] Bodies [place] Cells Acanthocytes (Spur) Schistocytes Smear Tech's Comments ESR PT INR APTT Sodium Potassium Chloride Carbon Dioxide Anion Gap BUN Creatinine Estim Creat Clear Calc Estimated GFR Random Glucose Osmolality 269 L Lactic Acid Lactic Acid F/U @ 2Hr 2.0 Calcium Phosphorus Magnesium Total Bilirubin AST ALT Alkaline Phosphatase Total Creatine Kinase Troponin I High Sens Total Protein Albumin Lipase TSH Urine Color Yellow Urine Appearance Clear Urine pH 6.0 Ur Specific [place] 1.020 Urine Protein 30 (1+) H Urine Glucose (UA) >=1000 H Urine Ketones >=160 Urine Blood Small (1+) H Urine Nitrite Negative Ur Leukocyte Esterase Negative Urine RBC 0-2 Urine WBC 0-5 Ur Squamous Epith Cells 0-2 Urine Bacteria None Seen Hyaline Casts 0-2 Urine Osmolality 532 Ur Random Sodium 116.0 CSF Tube Number 2 4 CSF Volume 1.0 CSF Appearance CLOUDY CSF Color YELLOW CSF WBC 253 H* CSF RBC 151 CSF Neutrophils 88 CSF Lymphocytes 3 CSF Monocytes % 9 CSF Appearance (b) Hazy CSF Glucose < 3 CSF Total Protein 661.2 H CSF C.neoform/gat PCR Not Detected CSF CMV DNA (PCR) Not Detected CSF Enterovirus (PCR) Not Detected CSF E. coli K1 (PCR) Not Detected CSF H. influenzae (PCR) Not Detected CSF HSV I (PCR) Not Detected CSF HSV II (PCR) Not Detected CSF HHV 6 (PCR) Not Detected CSF L.monocytogenes PCR Not Detected CSF N. meningitidis PCR Not Detected CSF Parechovirus (PCR) Not Detected CSF S. agalactiae (PCR) Not Detected CSF S. pneumoniae (PCR) Detected A* CSF VZV (PCR) Not Detected Urine Opiates Screen Not Detected Urine Fentanyl Screen Not Detected Ur Barbiturates Screen Not Detected Ur Phencyclidine Scrn Not Detected Ur Amphetamines Screen Not Detected U Benzodiazepines Scrn POSITIVE H Urine Cocaine Screen Not Detected U Marijuana (THC) Screen Not Detected Ethyl Alcohol Influenza Type A (ANDREW) Influenza Type A (PCR) NEGATIVE Influenza Type B (ANDREW) Influenza Type B (PCR) NEGATIVE Influenza A & B Note RSV RNA Qual (PCR) NEGATIVE SARS-CoV-2 RNA (RT-PCR) NEGATIVE 06/13/23 06/14/23 06/14/23 22:02 01:55 04:43 WBC 19.6 H 21.4 H RBC 3.51 L 3.42 L Hgb 11.3 L 10.9 L Hct 30.4 L 29.1 L MCV 86.6 85.1 MCH 32.2 31.9 MCHC 37.2 H 37.5 H RDW 12.9 12.8 Plt Count TNP 140 L MPV 9.5 10.0 Immature Gran % (Auto) Cancelled Cancelled Neut % (Auto) Cancelled Cancelled Lymph % (Auto) Cancelled Cancelled [place] % (Auto) Cancelled Cancelled Eos % (Auto) Cancelled Cancelled Baso % (Auto) Cancelled Cancelled Lymph # (Auto) Cancelled Cancelled [place] # (Auto) Cancelled Cancelled Eos # (Auto) Cancelled Cancelled Baso # (Auto) Cancelled Cancelled Abs Immat Gran (auto) Cancelled Cancelled Absolute Neuts (auto) Cancelled Cancelled Absolute Nucleated RBC 0.000 0.000 Nucleated RBC % (auto) 0.0 0.0 Neutrophils % (Manual) 58 81 H Band Neutrophils % 35 H 11 H Lymphocytes % (Manual) 4 L 5 L Monocytes % (Manual) 3 3 Abs Neuts (Manual) 18.2 H 19.7 H Lymphocytes # (Manual) 0.8 L 1.1 L Monocytes # (Manual) 0.6 0.6 Toxic Granulation PRESENT Toxic Vacuolation PRESENT Dohle Bodies PRESENT Platelet Estimate NORMAL SLIGHTLY DECREASED Large Platelets PRESENT Plt Morphology Comment NORMAL NOTED RBC Morphology NOTED NOTED Spherocytes 1+ (0-2) Target Cells 1+ (5-14) [place] Bodies PRESENT [place] Cells 2+ (3-5) Acanthocytes (Spur) 2+ (3-5) 2+ (3-5) Schistocytes 1+ (0-2) Smear Tech's Comments ESR 81 H PT 12.4 INR 1.0 APTT Sodium 126 L 129 L 129 L Potassium 3.3 3.2 L 3.3 Chloride 99 97 98 Carbon Dioxide 15 L 20 L 20 L Anion Gap 15 15 14 BUN 8 L 7 L 7 L Creatinine 0.68 0.67 0.68 Estim Creat Clear Calc 164.8 167.3 164.8 Estimated GFR > 60 > 60 > 60 Random Glucose 197 H 169 H 154 H Osmolality Lactic Acid Lactic Acid F/U @ 2Hr Calcium 7.6 L D 7.7 L 7.8 L Phosphorus Cancelled 2.2 L Magnesium Cancelled 2.4 Total Bilirubin 0.5 0.5 0.5 AST 24 23 23 ALT 18 18 16 Alkaline Phosphatase 39 40 41 Total Creatine Kinase Troponin I High Sens Total Protein 6.6 6.6 6.4 L Albumin 3.3 L 3.2 L 3.2 L Lipase TSH Urine Color Urine Appearance Urine pH Ur Specific [place] Urine Protein Urine Glucose (UA) Urine Ketones Urine Blood Urine Nitrite Ur Leukocyte Esterase Urine RBC Urine WBC Ur Squamous Epith Cells Urine Bacteria Hyaline Casts Urine Osmolality Ur Random Sodium CSF Tube Number CSF Volume CSF Appearance CSF Color CSF WBC CSF RBC CSF Neutrophils CSF Lymphocytes CSF Monocytes % CSF Appearance (b) CSF Glucose CSF Total Protein CSF C.neoform/gat PCR CSF CMV DNA (PCR) CSF Enterovirus (PCR) CSF E. coli K1 (PCR) CSF H. influenzae (PCR) CSF HSV I (PCR) CSF HSV II (PCR) CSF HHV 6 (PCR) CSF L.monocytogenes PCR CSF N. meningitidis PCR CSF Parechovirus (PCR) CSF S. agalactiae (PCR) CSF S. pneumoniae (PCR) CSF VZV (PCR) Urine Opiates Screen Urine Fentanyl Screen Ur Barbiturates Screen Ur Phencyclidine Scrn Ur Amphetamines Screen U Benzodiazepines Scrn Urine Cocaine Screen U Marijuana (THC) Screen Ethyl Alcohol Influenza Type A (ANDREW) Influenza Type A (PCR) Influenza Type B (ANDREW) Influenza Type B (PCR) Influenza A & B Note RSV RNA Qual (PCR) SARS-CoV-2 RNA (RT-PCR) Microbiology Microbiology Results: Microbiology 06/13/23 19:03 Cerebrospinal Fluid Gram Stain - Final 06/13/23 19:03 Cerebrospinal Fluid CSF Examination - Final 06/13/23 19:03 Cerebrospinal Fluid Fluid Description - Final 06/13/23 17:27 Blood - Venous Blood Culture - Preliminary Prelim: GPC Gram Stain only 06/13/23 17:07 Blood - Venous Blood Culture - Preliminary Prelim: GPC Gram Stain only Progress Note: A&P Assessment and plan (1) Bacterial meningitis: Status: Acute Plan Patient is a 42 Y M w/ hypertension, s/p traumatic splenectomy, p/w encephalopathy, c/f bacterial meningitis, and gram positive cocci bacteremia N: encephalopathy, d/t likely bacterial meningitis; to follow-up CSF culture; intermittent agitation, dexmedetomidine gtt, wean as tolerated CV: hemodynamically stable; no acute issues R: maintaining airway; no acute issues GI: NPO while encephalopathic : hyponatremia, mild, improving H: leukocytosis, thrombocytopenia, likely reactive; to continue to monitor ID: c/f bacterial meningitis; given s/p splenectomy, to maintain vancomycin, cefepime, and ampicillin until BCx, CSF Cx results E: hyperglycemia, to continue to monitor P: intermittent agitation, as described above Quality Stroke Does the patient have a stroke diagnosis?: No VTE Prior VTE?: No VTE Risk Level:: Medical - moderate - high VTE Device Contraindication: N/A - Device Ordered VTE Drug Contraindication: N/A - Med Ordered
[2023-06-14] MEDS: vancomycin HCL 1,250 MG in 0.9 % Sodium Chloride 250 ML 166.67 MG IV ×2 (08:04→20:14)
[2023-06-14] MEDS: Lactated Ringers 1,000 ML 100 ML IVCONT (08:05)
[2023-06-14] MEDS: Midazolam HCl/PF 2 MG/2 ML VIAL 4 MG IVPUSH (09:20)
[2023-06-14] MEDS: Calcium Gluconate/NaCl,Iso-Osm 1 GM/50 ML PLAST..BAG IV (09:55)
[2023-06-14 11:39] LABS: Alanine Aminotransferase 15 U/L (0-40); Alkaline Phosphatase 44 U/L (39-117); Anion Gap 13 (12-20); Aspartate Amino Transferase 23 U/L (5-37); Bilirubin Total 0.6 mg/dL (0.0-1.0); Blood Urea Nitrogen 8 mg/dL (9-16); Calcium 8.3 mg/dL (8.4-10.2); Carbon Dioxide 21 mmol/L (22-29); Chloride 102 mmol/L (96-108); Creatinine Clr Calc Pharmacy 151.5; Estimated Glomerular Filt Rate > 60; Glucose Random 130 mg/dL (60-115); Magnesium 2.5 mg/dL (1.6-2.6); Phosphorus 2.6 mg/dL (2.7-4.5); Potassium 3.2 mmol/L (3.3-5.1); Sodium 133 mmol/L (135-145); Total Protein 6.2 g/dL (6.5-8.0)
[2023-06-14] MEDS: Acetaminophen 1,000 MG/100 ML PIGGYBACK 400 MG IV ×2 (12:33→18:58)
[2023-06-14] MEDS: dexmedeTOMIDidine HCL/NS 400 MCG/100 ML INFUS..BTL 18.22 MCG IVCONT ×2 (12:36→23:43)
--- NOTE | 2023-06-14 12:57 | MHC.CM.PN ---
CM MET WITH MOTHER AT PT'S BEDSIDE IN ICU. PT IN A DEEP SLEEP AND UNABLE TO PARTICIPATE IN ASSESSMENT. PER MOTHER, PT LIVES WITH SPOUSE AND 3 DAUGHTERS. EMPLOYED F/T, INDEPENDENT. NO HCP ON FILE/MOTHER DOES NOT BELIEVE HE HAS ONE. MOTHER UNSURE OF PT'S PCP NAME. WENT HOME TO REST SO UNABLE TO OBTAIN NAME OF PCP AT THIS TIME. DP: HOME WILL BE THE PLAN, UNSURE WHAT THE NEEDS WILL BE AT THIS TIME (SERVICES?) CM WILL CONTINUE TO FOLLOW FOR DC PLAN/NEEDS.
[2023-06-14] MEDS: Albumin Human 25 % 50 ML 100 ML IV (15:28)
[2023-06-14 19:26] LABS: Magnesium 2.7 mg/dL (1.6-2.6); Phosphorus 2.4 mg/dL (2.7-4.5)
[2023-06-14 23:59] LABS: Mean Corpuscular Volume 85.2 fL (80.0-98.0); PLT CLUMP 1
[2023-06-15] VITALS (25 sets, daily range): BP systolic 107–143; BP diastolic 65–84; PULSE 48–94; RESP 12–26; TEMP 36.4–36.6; O2SAT 92–100; BMI 28.6
[2023-06-15 00:01] LABS: Hematocrit 28.1 % (42.0-52.0); Hemoglobin 10.4 g/dl (14.0-18.0); Mean Corpuscular Hemoglobin 31.5 pg (27.0-33.0); Mean Platelet Volume 10.6 fL (9.4-12.4); Platelet Count 138 X10*3/uL (160-400); Red Cell Distribution Width 13.3 % (11.0-16.0); White Blood Count 18.4 X10*3/uL (4.8-10.8)
[2023-06-15 00:11] LABS: Alanine Aminotransferase 14 U/L (0-40); Albumin Level 2.9 g/dL (3.5-5.0); Alkaline Phosphatase 35 U/L (39-117); Anion Gap 11 (12-20); Aspartate Amino Transferase 18 U/L (5-37); Bilirubin Total 0.6 mg/dL (0.0-1.0); Blood Urea Nitrogen 12 mg/dL (9-16); Calcium 8.1 mg/dL (8.4-10.2); Carbon Dioxide 21 mmol/L (22-29); Chloride 109 mmol/L (96-108); Creatinine Clr Calc Pharmacy 160.3; Estimated Glomerular Filt Rate > 60; Glucose Random 122 mg/dL (60-115); Magnesium 2.7 mg/dL (1.6-2.6); Potassium 3.3 mmol/L (3.3-5.1); Sodium 138 mmol/L (135-145); Total Protein 6.1 g/dL (6.5-8.0)
[2023-06-15 00:21] LABS: Band Neutrophils Percent 13 % (3-5); Lymphocytes Absolute Manual 0.9 X10*3/uL (1.2-4.9); Lymphocytes Percent Manual 5 % (20-40); Monocytes Absolute Manual 1.7 X10*3/uL (0.1-1.2); Monocytes Percent Manual 9 % (2-11); Neutrophils Absolute Manual 15.8 X10*3/uL (2.0-8.3); Neutrophils Percent Manual 73 % (45-73)
[2023-06-15 00:22] LABS: Large Platelet PRESENT; Platelet Estimate SLIGHTLY DECREASED (NORMAL); Platelet Morphology Comment NOTED; RBC Morphology NOTED
[2023-06-15 00:23] LABS: Acanthocytes 2+ (3-5) /OIF; Burr Cells 2+ (3-5) /OIF; Dohle Bodies PRESENT; Howell Jolly Bodies PRESENT; Schistocytes 1+ (0-2) /OIF; Target Cells 1+ (5-14) /OIF; Toxic Granulation PRESENT
[2023-06-15] MEDS: Ampicillin Sodium 2 GM in 0.9 % Sodium Chloride 100 ML IV ×2 (00:30→04:20)
[2023-06-15] MEDS: Potassium Phosphate/NS 15 MMOL/250 ML PLAST..BAG 62.5 MMOL IV ×2 (01:23→05:24)
--- NOTE | 2023-06-15 03:13 | PC.NURSE ---
CARE ASSUMED 7PM...PATIENT REMAINS CONFUSED...GRACIA SPONTANEOUSLY BUT NOT TO COMMAND...MAINLY NON-VERBAL BUT STATED I DON'T HAVE TO GO TO THE BATHROOM WHEN PROVIDED WITH URINAL..REMAINS (+) NUCHAL RIGIDITY AND PAIN PER REPORT..RESTLESS...PULLING OFF GOWN AND OR MONITOR LEADS...RANDOMLY PULLING LINES...PER SHIFT REPORT PRECIDEX DRIP PREVIOUSLY WEANED OFF 4PM AND HAD RECEIVED PRN VERSED 4MG IV 09:20....PRECIDEX DRIP RESUMED AND TITRATED TO 0.8 MCG/KG/HR WITH RESTFUL EFFECT...S.KALINA HR 50'S..RARE PAC.....VOIDED 300ml VIA EXTERNAL [place] [employer]HE[employer]
[2023-06-15] MEDS: Acetaminophen 1,000 MG/100 ML PIGGYBACK 400 MG IV ×2 (03:55→12:17)
[2023-06-15] MEDS: Pantoprazole Sodium 40 MG/10 ML VIAL IVPUSH (05:06)
[2023-06-15] MEDS: cefEPime HCl 2 GM in 0.9 % Sodium Chloride 50 ML IV (05:06)
[2023-06-15 05:07] LABS: Spherocytes 1+ (0-2) /OIF
[2023-06-15] MEDS: dexmedeTOMIDidine HCL/NS 400 MCG/100 ML INFUS..BTL 18.22 MCG IVCONT (05:10)
[2023-06-15 05:36] LABS: Mean Platelet Volume 10.8 fL (9.4-12.4); PLT CLUMP 1; Red Cell Distribution Width 13.2 % (11.0-16.0)
[2023-06-15 05:38] LABS: Hematocrit 29.6 % (42.0-52.0); Hemoglobin 10.8 g/dl (14.0-18.0); Mean Corpuscular HGB Conc 36.5 g/dl (31.0-36.0); Mean Corpuscular Hemoglobin 31.4 pg (27.0-33.0); Red Blood Count 3.44 X10*6/uL (4.60-5.80)
[2023-06-15 05:39] LABS: Platelet Count 138 X10*3/uL (160-400); White Blood Count 17.2 X10*3/uL (4.8-10.8)
[2023-06-15 05:48] LABS: Vancomycin Random 9.4 mcg/mL (15-20)
[2023-06-15 05:51] LABS: Alanine Aminotransferase 13 U/L (0-40); Albumin Level 2.9 g/dL (3.5-5.0); Alkaline Phosphatase 35 U/L (39-117); Anion Gap 11 (12-20); Aspartate Amino Transferase 15 U/L (5-37); Bilirubin Total 0.6 mg/dL (0.0-1.0); Blood Urea Nitrogen 13 mg/dL (9-16); Calcium 8.1 mg/dL (8.4-10.2); Carbon Dioxide 20 mmol/L (22-29); Chloride 110 mmol/L (96-108); Creatinine Clr Calc Pharmacy 158.7; Estimated Glomerular Filt Rate > 60; Glucose Random 119 mg/dL (60-115); Potassium 3.4 mmol/L (3.3-5.1); Sodium 138 mmol/L (135-145); Total Protein 6.2 g/dL (6.5-8.0)
[2023-06-15 06:00] LABS: Band Neutrophils Percent 5 % (3-5); Lymphocytes Percent Manual 6 % (20-40); Monocytes Absolute Manual 1.4 X10*3/uL (0.1-1.2); Monocytes Percent Manual 8 % (2-11); Neutrophils Absolute Manual 14.8 X10*3/uL (2.0-8.3); Neutrophils Percent Manual 81 % (45-73); RBC Morphology NOTED
[2023-06-15 06:02] LABS: Acanthocytes 2+ (3-5) /OIF; Large Platelet PRESENT; Platelet Estimate SLIGHTLY DECREASED (NORMAL); Platelet Morphology Comment NORMAL; Schistocytes 1+ (0-2) /OIF
[2023-06-15 06:03] LABS: Burr Cells 2+ (3-5) /OIF; Dohle Bodies PRESENT; Howell Jolly Bodies PRESENT; Spherocytes 1+ (0-2) /OIF; Target Cells 1+ (5-14) /OIF; Toxic Granulation PRESENT
--- NOTE | 2023-06-15 06:51 | HE.PHANOTE ---
RE: VANCO DOSING Trough came back as 9.4. Based on pt's sCr of 0.7, CrCl of 158.7 and indication of BRIM STIFFENER infection, dose was increased to 1250 mg q8h (predicted AUC of 526 and trough of 15.2) starting at 0800 on 06/14/23. Random is scheduled @0600 on 06/16/23.
[2023-06-15] MEDS: vancomycin HCL 1,250 MG in 0.9 % Sodium Chloride 250 ML 166.67 MG IV ×3 (07:31→23:08)
[2023-06-15] MEDS: cefTRIAXone sodium 2 GM in 0.9 % Sodium Chloride 50 ML IV ×2 (09:26→22:02)
[2023-06-15] MEDS: Albumin Human 25 % 100 ML IV ×3 (09:26→21:59)
--- NOTE | 2023-06-15 09:56 | PM.CCPN ---
Subjective Subjective Date of Service: 06/15/23 Interval History: 42-year-old gentleman with underlying history of splenectomy and hypertension admitted 06/13/2023 with encephalopathy secondary to streptococcal meningitis, now improving slowly. Patient initially required Precedex drip secondary to agitation. No events overnight. Precedex is being titrated off. Critical Care Time (minutes): 30 Physical Exam Vital Signs: Vital Signs: Last Vital Signs Temp 97.8 F 06/15/23 08:00 Pulse 48 L 06/15/23 09:24 Resp 12 06/15/23 09:24 BP 127/84 06/15/23 09:24 Pulse Ox 95 06/15/23 09:24 O2 Del Method Room Air 06/15/23 09:00 BMI result Body Mass Index 28.6 Const: General: no acute distress and lethargic (Arousable, follows commands) Orientation/consciousness: lethargic (Arousable, follows commands) Eyes: Sclerae: sclerae normal EOM: EOMs intact bilaterally Neck: Neck: Yes no lymphadenopathy, Yes trachea midline and Yes supple Resp: Effort & Inspection: normal respiratory effort and no respiratory distress Auscultation: clear to auscultation bilaterally Cardio: Rate: regular rate Rhythm: regular rhythm Heart sounds: no gallops, no murmurs and no rubs GI: Palpation (GI): Soft to palpation and Other GI palpation findings present ( Nontender) Auscultation: normal bowel sounds Extrem: General: Yes no pedal edema, No clubbing and No cyanosis Objective Data Labs 06/15/23 05:22 06/15/23 05:22 Labs: Laboratory Results - last 24 hr 06/14/23 06/14/23 06/14/23 11:06 19:00 23:45 WBC 18.4 H RBC 3.30 L Hgb 10.4 L Hct 28.1 L MCV 85.2 MCH 31.5 MCHC 37.0 H RDW 13.3 Plt Count 138 L MPV 10.6 Immature Gran % (Auto) Cancelled Neut % (Auto) Cancelled Lymph % (Auto) Cancelled [place] % (Auto) Cancelled Eos % (Auto) Cancelled Baso % (Auto) Cancelled Lymph # (Auto) Cancelled [place] # (Auto) Cancelled Eos # (Auto) Cancelled Baso # (Auto) Cancelled Abs Immat Gran (auto) Cancelled Absolute Neuts (auto) Cancelled Absolute Nucleated RBC 0.000 Nucleated RBC % (auto) 0.0 Neutrophils % (Manual) 73 Band Neutrophils % 13 H Lymphocytes % (Manual) 5 L Monocytes % (Manual) 9 Abs Neuts (Manual) 15.8 H Lymphocytes # (Manual) 0.9 L Monocytes # (Manual) 1.7 H Toxic Granulation PRESENT Dohle Bodies PRESENT Platelet Estimate SLIGHTLY DECREASED Large Platelets PRESENT Plt Morphology Comment NOTED RBC Morphology NOTED Spherocytes 1+ (0-2) Target Cells 1+ (5-14) [place] Bodies PRESENT [place] Cells 2+ (3-5) Acanthocytes (Spur) 2+ (3-5) Schistocytes 1+ (0-2) Sodium 133 L 138 Potassium 3.2 L 3.3 Chloride 102 109 H Carbon Dioxide 21 L 21 L Anion Gap 13 11 L BUN 8 L 12 Creatinine 0.73 0.69 Estim Creat Clear Calc 151.5 160.3 Estimated GFR > 60 > 60 Random Glucose 130 H 122 H Calcium 8.3 L D 8.1 L Phosphorus 2.6 L 2.4 L 2.0 L Magnesium 2.5 2.7 H 2.7 H Total Bilirubin 0.6 0.6 AST 23 18 ALT 15 14 Alkaline Phosphatase 44 35 L Total Protein 6.2 L 6.1 L Albumin 3.0 L 2.9 L Random Vancomycin 06/15/23 05:22 WBC 17.2 H RBC 3.44 L Hgb 10.8 L Hct 29.6 L MCV 86.0 MCH 31.4 MCHC 36.5 H RDW 13.2 Plt Count 138 L MPV 10.8 Immature Gran % (Auto) Cancelled Neut % (Auto) Cancelled Lymph % (Auto) Cancelled [place] % (Auto) Cancelled Eos % (Auto) Cancelled Baso % (Auto) Cancelled Lymph # (Auto) Cancelled [place] # (Auto) Cancelled Eos # (Auto) Cancelled Baso # (Auto) Cancelled Abs Immat Gran (auto) Cancelled Absolute Neuts (auto) Cancelled Absolute Nucleated RBC 0.000 Nucleated RBC % (auto) 0.0 Neutrophils % (Manual) 81 H Band Neutrophils % 5 Lymphocytes % (Manual) 6 L Monocytes % (Manual) 8 Abs Neuts (Manual) 14.8 H Lymphocytes # (Manual) 1.0 L Monocytes # (Manual) 1.4 H Toxic Granulation PRESENT Dohle Bodies PRESENT Platelet Estimate SLIGHTLY DECREASED Large Platelets PRESENT Plt Morphology Comment NORMAL RBC Morphology NOTED Spherocytes 1+ (0-2) Target Cells 1+ (5-14) [place] Bodies PRESENT [place] Cells 2+ (3-5) Acanthocytes (Spur) 2+ (3-5) Schistocytes 1+ (0-2) Sodium 138 Potassium 3.4 Chloride 110 H Carbon Dioxide 20 L Anion Gap 11 L BUN 13 Creatinine 0.70 Estim Creat Clear Calc 158.7 Estimated GFR > 60 Random Glucose 119 H Calcium 8.1 L Phosphorus Magnesium Total Bilirubin 0.6 AST 15 ALT 13 Alkaline Phosphatase 35 L Total Protein 6.2 L Albumin 2.9 L Random Vancomycin 9.4 L Microbiology Microbiology Results: Microbiology 06/13/23 19:03 Cerebrospinal Fluid Gram Stain - Final 06/13/23 19:03 Cerebrospinal Fluid CSF Examination - Final 06/13/23 19:03 Cerebrospinal Fluid Fluid Description - Final 06/13/23 19:03 Cerebrospinal Fluid CSF Culture - Preliminary No growth to date. 06/13/23 17:27 Blood - Venous Blood Culture - Preliminary Prelim: GPC Gram Stain only 06/13/23 17:07 Blood - Venous Blood Culture - Preliminary Prelim: GPC Gram Stain only Progress Note: A&P Assessment and plan (1) Streptococcal meningitis: Status: Acute Assessment and Plan: Assessment: 42-year-old gentleman admitted with encephalopathy secondary to streptococcal meningitis Plan: Neuro: Encephalopathy secondary to streptococcal meningitis, slowly improving. Continue to titrate off Precedex drip. Cardiac: No acute issues. Pulmonary: No acute issues. Renal: No acute issues. Endo: No acute issues. GI: No acute issues. ID: Streptococcal meningitis on the background history of splenectomy. Continue vancomycin and ceftriaxone. Heme/Onc: No acute issues. Psych: No acute issues. Miscellaneous: No acute issues. Prophylaxis: Compression devices Diet: Nothing by mouth Critical care time spent: 30 minutes Quality Stroke Does the patient have a stroke diagnosis?: No VTE Prior VTE?: No VTE Risk Level:: Medical - moderate - high VTE Device Contraindication: N/A - Device Ordered VTE Drug Contraindication: N/A - Med Ordered
--- NOTE | 2023-06-15 10:35 | PC.NURSE ---
Addendum entered by Jessica Cotton RN 06/15/23 17:58: MRI scheduled for 2044 - Unable to transport patient during provided 20min window due to lack of ancillary support for transport. MD and nursing supervisor display fabrication aware. Patient and family updated. Handoff to be given to GENIE Ross. Addendum entered by Jessica Cotton RN 06/15/23 16:48: 1400 - new right sided facial dropp noticed with smiling. Full neuro assessment completed and intact. VSS. Patient c/o of continued 6/10 headache but states its better than yesterday . Dr Harmon notified and at bedside. Neuro consulted & cdl program coordinator notified via tigertext and at bedside. No TNK per neuro. MRI ordered - screening form completed and faxed to MRI - awaiting MRI time. Patient and family updated and agreeable to plan of care. Original Note: Precedex gtt titrated off - patient arousable to tactile stimuli but not verbal stimuli. Patient expressed difficulty hearing, everything sounds like vibrations/muffling . Pen and paper at bedside to aid in communication. Patient A&O x3, no complaints of pain, able to express needs and write his name on paper. Patient expressed he does not need to void at this time - urinal at bedside. MD notified of current hearing difficulty. VSS. Patient passed nursing swallow eval - regular diet ordered and GSR called to bedside. Family at bedside and updated by this RN and MD and agreeable to current plan of care. High fall risk precautions in place and call nova within reach.
--- NOTE | 2023-06-15 12:27 | P.CDIM_ITS ---
PROVIDER RESPONSE TEXT: To clarify, the appropriate diagnosis supported by the clinical indicators: Sepsis: possible QUERY TEXT: PHYSICIAN'S DOCUMENTATION REQUEST Date of Query: 06/15/2023 11:37 AM EST Patient Name: Rajinder Palacio Admit Date: 06/14/2023 Dear Avtar Harmon, A review of the medical record indicates additional documentation may be needed. Please review below and update the documentation accordingly. Clinical indicators: ICU H&P 2/3 - Assessment: Acute severe sepsis without shock. ED workup revealed WBC 18.6, bands 35%, LA 6.8 followed by 2.0. Treated with acyclovir, Rocephin, Vancomycin, given 3L of fluid. Bacterial meningitis. Sepsis focused exam completed. At this time the 1st results of CSF culture and gram stain reveals strep pneumo organisms, continue patient with above mentioned broad spectrum antibiotics. Please clarify the documentation of severe sepsis: Sepsis suspected, probable, possible etc. Sepsis has been ruled out Other (explain) Clinically unable to determine (explain) Thank you, Altagracia Saul, CCS, CDIS Use of terms such as suspected, likely, concern for, or probable (associated with a specific diagnosi s that is being evaluated, monitored, or treated as if it exists) are acceptable and can be coded in the inpatient se tting, when documented at the time of discharge. Please use your independent medical judgment in providing your response. THIS QUERY IS PART OF THE PERMANENT MEDICAL RECORD
[2023-06-15] MEDS: fentaNYL citrate/PF 100 MCG/2 ML VIAL 25 MCG IVPUSH ×2 (13:02→21:54)
[2023-06-15 19:32] LABS: Alanine Aminotransferase 19 U/L (0-40); Albumin Level 3.3 g/dL (3.5-5.0); Alkaline Phosphatase 43 U/L (39-117); Anion Gap 14 (12-20); Aspartate Amino Transferase 24 U/L (5-37); Bilirubin Total 0.6 mg/dL (0.0-1.0); Blood Urea Nitrogen 13 mg/dL (9-16); Calcium 8.6 mg/dL (8.4-10.2); Carbon Dioxide 19 mmol/L (22-29); Chloride 109 mmol/L (96-108); Creatinine Clr Calc Pharmacy 148.1; Estimated Glomerular Filt Rate > 60; Glucose Random 130 mg/dL (60-115); Potassium 4.1 mmol/L (3.3-5.1); Sodium 138 mmol/L (135-145); Total Protein 6.6 g/dL (6.5-8.0)
[2023-06-15] MEDS: gadobutroL 10 ML VIAL IVPUSH (21:19)
[2023-06-15 23:24] LABS: Lyme (B. burgdorferi) PCR NOT DETECTED (NOT DETECTED)
[2023-06-16] VITALS (18 sets, daily range): BP systolic 116–139; BP diastolic 62–81; PULSE 66–98; RESP 10–27; TEMP 36.4–37.9; O2SAT 94–100; BMI 29.4
--- NOTE | 2023-06-16 01:26 | PC.NURSE ---
Addendum entered by Chico Hollis RN 06/16/23 04:08: SERIAL NEUROLOGIC CHECKS UNCHANGED OVERNIGHT Original Note: CARE ASSUMED 7PM...PATIENT ALERT,,CONVERSES BUT REMAINS DEAF/UNABLE TO HEAR PER SHIFT REPORT...READS WRITTEN NOTES AND RESPONDS APPRPRIATELY VERBALLY...MILD RIGHT FACIAL DROOP REMAINS...GRACIA WITH GOOD STRENGTH AND CO-ORDINATION...SWALLOWS FLUIDS W/O DIFFICULTY...CONTINUES WITH HEADACHE..STATED IT'S A POUNDING PRESSURE ...PRN FENTANYL GIVEN WITH TRANSIENT EFFECT...TO MRI APPROX 8:30 PM..TOLERATED PROCEDURE W/O INCIDENT...VSS...RESPIRATIONS EASY...DECADRON IV/ANTIBIOTICS PER JUL...NSR..NO ECTOPY...HR 70'S-80'S..AFEBRILE
[2023-06-16] MEDS: Albumin Human 25 % 100 ML IV (02:46)
[2023-06-16] MEDS: Pantoprazole Sodium 40 MG/10 ML VIAL IVPUSH (05:14)
[2023-06-16 05:33] LABS: MANUAL DIFF FLAG NO
[2023-06-16 05:35] LABS: VBG HCO3 23 mmol/L (22-26); VBG pCO2 28 mmHg; VBG pH 7.51 (7.32-7.43); VBG pO2 36 mmHg
[2023-06-16 05:36] LABS: Basophils Percent Auto 0.3 % (0-2); Hematocrit 27.8 % (42.0-52.0); Hemoglobin 10.1 g/dl (14.0-18.0); Imm Gran Abs Auto 0.43 X10*3/uL (0.00-0.03); Imm Gran Pct Auto 3.8 % (0.0-0.4); Lymphocytes Absolute Auto 1.1 X10*3/uL (1.2-4.9); Mean Corpuscular HGB Conc 36.3 g/dl (31.0-36.0); Mean Corpuscular Hemoglobin 31.5 pg (27.0-33.0); Mean Corpuscular Volume 86.6 fL (80.0-98.0); Mean Platelet Volume 10.8 fL (9.4-12.4); Monocytes Percent Auto 8.8 % (2-11); Neutrophils Absolute Auto 8.7 x10*3/uL (2.0-8.3); Neutrophils Percent Auto 77.1 % (45-73); Platelet Count 157 X10*3/uL (160-400); Red Blood Count 3.21 X10*6/uL (4.60-5.80); Red Cell Distribution Width 13.8 % (11.0-16.0); White Blood Count 11.3 X10*3/uL (4.8-10.8)
[2023-06-16 05:55] LABS: Alanine Aminotransferase 24 U/L (0-40); Albumin Level 3.6 g/dL (3.5-5.0); Alkaline Phosphatase 34 U/L (39-117); Anion Gap 16 (12-20); Aspartate Amino Transferase 29 U/L (5-37); Bilirubin Total 0.5 mg/dL (0.0-1.0); Blood Urea Nitrogen 13 mg/dL (9-16); Calcium 8.7 mg/dL (8.4-10.2); Carbon Dioxide 21 mmol/L (22-29); Chloride 106 mmol/L (96-108); Creatinine Clr Calc Pharmacy 144.3; Estimated Glomerular Filt Rate > 60; Glucose Random 123 mg/dL (60-115); Magnesium 2.6 mg/dL (1.6-2.6); Phosphorus 3.1 mg/dL (2.7-4.5); Potassium 3.6 mmol/L (3.3-5.1); Sodium 139 mmol/L (135-145); Total Protein 6.6 g/dL (6.5-8.0)
[2023-06-16 05:58] LABS: Vancomycin Random 14.5 mcg/mL (15-20)
[2023-06-16 06:30] LABS: Venous Blood Gas Refer to POC result
[2023-06-16] MEDS: fentaNYL citrate/PF 100 MCG/2 ML VIAL 25 MCG IVPUSH ×2 (07:59→12:51)
[2023-06-16] MEDS: vancomycin HCL 1,250 MG in 0.9 % Sodium Chloride 250 ML 166.7 MG IV (08:15)
--- NOTE | 2023-06-16 08:51 | P.CNNE_ITS ---
History of Present Illness Data of Consult Service Date: 07/14/23 Primary Care Provider: Liam Crowder MD HPI Reason for consult: Meningitis 42 years old man who was brought to hospital with few days history of fever chills headache and confusion and was diagnosed with likely bacterial meningitis. While he was being treated he was noted to have hearing difficulty developing yesterday. There was no focal weakness that was noted with it. He was not complaining of any significant nausea or vomiting. Review of Systems 2 Review of Systems: Significant anxiety to words his overall illness and recent headache fever chills and mental confusion PMFSH Surgical History Surgical History (Updated 06/14/23 @ 02:03 by Toyin Hooks RN) H/O splenectomy Social History Social History Household Members: Spouse Housing: House Do you presently have visiting nurse or other home services: No Patient Tobacco Use Status: Never used Tobacco Use of substances other than those prescribed or required for medical reasons: No Currently Displaying Signs/Symptoms of Drug Intoxication Withdrawal: No Advance Directives: No Advance Directives Information Provided: No Recently lost weight without trying: Unsure Poor oral hygiene: No service: No Meds Allergies Allergy/AdvReac Type Severity Reaction Status Date / Time diazepam [From VALIUM] Allergy Intermediate UNKNOWN Verified 06/15/23 13:00 Active Medications: Current Medications Fentanyl (Fentanyl Citrate/Pf 100 Mcg/2 Ml Vial) 25 mcg IVPUSH Q3H PRN; Protocol PRN Reason: Pain, Moderate(Pain Scale 4-6) Last Admin: 06/16/23 07:59 Dose: 25 mcg Acetaminophen (Ofirmev) 1,000 mg in 100 mls @ 400 mls/hr IV Q6H PRN PRN Reason: Pain, Moderate(Pain Scale 4-6) Last Infusion: 06/15/23 12:33 Dose: Infused Vancomycin HCl 1,250 mg/ (Sodium Chloride) 250 mls @ 166.667 mls/hr IV Q8H MARIANELA Last Admin: 06/16/23 08:15 Dose: 166.7 mls/hr Ceftriaxone Sodium 2 gm/ (Sodium Chloride) 50 mls @ 100 mls/hr IV BID MARIANELA Last Infusion: 06/15/23 23:31 Dose: Infused Dexamethasone Sodium Phosphate (14 mg/ Sodium Chloride) 51.4 mls @ 205.6 mls/hr IV Q6H MARIANELA Last Infusion: 06/16/23 00:48 Dose: Infused Midazolam HCl (Midazolam Hcl/Pf 2 Mg/2 Ml Vial) 4 mg IVPUSH Q4H PRN PRN Reason: Agitation Last Admin: 06/14/23 09:20 Dose: 4 mg Pantoprazole Sodium (Pantoprazole Sodium 40 Mg/10 Ml Vial) 40 mg IVPUSH DAILY@0630 MARIANELA Last Admin: 06/16/23 05:14 Dose: 40 mg Pharmacy Consult (Consult Rx Vancomycin Dosing) 1 each MISCELLANE DAILY PRN PRN Reason: Consult order Home Medications Medication Instructions Recorded Confirmed Last Taken Type amlodipine 5 mg-valsartan 160 mg 1 tab PO DAILY 06/14/23 06/14/23 Unknown History tablet Physical Exam 2 Vital Signs: Vital Signs: Last Vital Signs Temp 98.7 F 06/16/23 08:00 Pulse 86 06/16/23 08:00 Resp 16 06/16/23 08:00 BP 134/77 06/16/23 08:00 Pulse Ox 98 06/16/23 08:00 O2 Del Method Room Air 06/16/23 08:00 BMI result Body Mass Index 28.6 Neuro: Other: He was alert and awake with normal spontaneity of speech fluency comprehension and anxious affect. He was unable to here bedside conversation but was able to understand written information. He was following commands. He understood what was stated. There was mild right-sided central type facial weakness. Extraocular muscles were intact. Visual jain are full. There was no obvious focal arm or leg weakness. Plantars were flexors. He was having mild difficulty moving his neck side to side and up and down. Results Labs 06/16/23 05:19 06/16/23 05:19 Labs: Short CBC 06/16/23 Range/Units 05:19 WBC 11.3 H (4.8-10.8) X10*3/uL Hgb 10.1 L (14.0-18.0) g/dl Hct 27.8 L (42.0-52.0) % Plt Count 157 L (160-400) X10*3/uL BMP 06/15/23 06/16/23 18:59 05:19 Sodium 138 139 Potassium 4.1 D 3.6 Chloride 109 H 106 Carbon Dioxide 19 L 21 L BUN 13 13 Creatinine 0.75 0.77 Calcium 8.6 D 8.7 Liver Function 06/15/23 06/16/23 Range/Units 18:59 05:19 Total Bilirubin 0.6 0.5 (0.0-1.0) mg/dL AST 24 29 (5-37) U/L ALT 19 24 (0-40) U/L Alkaline Phosphatase 43 34 L (39-117) U/L Albumin 3.3 L 3.6 (3.5-5.0) g/dL MRI of brain revealed finding of relatively severe pyo meningitis. There was also evidence of mild cerebritis. Microbiology Microbiology Results: Microbiology 06/13/23 19:03 Cerebrospinal Fluid Gram Stain - Final 06/13/23 19:03 Cerebrospinal Fluid CSF Examination - Final 06/13/23 19:03 Cerebrospinal Fluid Fluid Description - Final 06/13/23 19:03 Cerebrospinal Fluid CSF Culture - Preliminary No growth after 2 days 06/13/23 17:27 Blood - Venous Blood Culture - Final Streptococcus pneumoniae 06/13/23 17:07 Blood - Venous Blood Culture - Final Streptococcus pneumoniae Assessment and Plan (1) Multiple cranial neuropathy: Status: Acute 42 years old man with acute bacterial purulent meningitis with MRI evidence of likely cerebritis. Clinical evidence also suggested multiple cranial neuropathies including bilateral cochlear and right facial. Mainstay of management at this time is appropriate antibiotic coverage. As far as prognosis for hearing impairment and facial weakness is concerned, it is difficult to do this at this point. I would suggest continuing antibiotics and a brief course of steroids. Once treatment is over, he might require further testing including audiogram. (2) Acute purulent meningitis: Status: Acute (3) Cerebritis: Status: Acute Procedures Date of Service Date of Service: 06/16/23
[2023-06-16] MEDS: cefTRIAXone sodium 2 GM in 0.9 % Sodium Chloride 50 ML IV ×2 (09:33→20:57)
--- NOTE | 2023-06-16 09:43 | MHC.CM.PN ---
Pt continues care in ICU: meningitis and MRI findings of acute infarcts: No plans for transfer today: continue ATB and supportive care. Pt experiencing acute hearing loss and is communicating by writing. Initial d/c plan for home w/family support: will reassess once pt is medically stable for any acute rehab needs. Unknown if pt has any CVA related deficits that would require STR.
--- NOTE | 2023-06-16 11:22 | P.PNCC_ITS ---
Subjective Subjective Date of Service: 06/16/23 Interval History: 42-year-old gentleman with underlying history of splenectomy and hypertension admitted 06/13/2023 with encephalopathy secondary to streptococcal meningitis, now improving slowly. Patient initially required Precedex drip secondary to agitation. Evaluated by Neurology. Further complicated by hearing loss. No events overnight. Critical Care Time (minutes): 0 Physical Exam 2 Vital Signs: Vital Signs: Last Vital Signs Temp 98.7 F 06/16/23 08:00 Pulse 73 06/16/23 11:00 Resp 27 H 06/16/23 11:00 BP 130/79 06/16/23 11:00 Pulse Ox 100 06/16/23 11:00 O2 Del Method Room Air 06/16/23 11:00 BMI result Body Mass Index 29.4 Const: General: no acute distress, alert and other (hearing loss) N utritional Appearance: not obese Orientation/consciousness: Other orientation findings ( oriented) HEENT: Head: Yes atraumatic Eyes: General: appearance normal, both eyes and all related structures S clerae: sclerae normal EOM: EOMs intact bilaterally Neck: Neck: Yes supple Lymphatic: no lymphadenopathy noted Resp: Effort & Inspection: normal respiratory effort and no use of accessory muscles Auscultation: clear to auscultation bilaterally Cardio: Rate: regular rate Rhythm: regular rhythm Heart sounds: no gallops, no murmurs and no rubs Skin: General skin exam: other ( warm) Extrem: General: No clubbing, No cyanosis and No edema Objective Data Labs 06/16/23 05:19 06/16/23 05:19 Labs: Laboratory Results - last 24 hr 06/13/23 06/15/23 06/16/23 19:03 18:59 05:19 WBC 11.3 H RBC 3.21 L Hgb 10.1 L Hct 27.8 L MCV 86.6 MCH 31.5 MCHC 36.3 H RDW 13.8 Plt Count 157 L MPV 10.8 Immature Gran % (Auto) 3.8 H Neut % (Auto) 77.1 H Lymph % (Auto) 10.0 L [place] % (Auto) 8.8 Eos % (Auto) 0.0 Baso % (Auto) 0.3 Lymph # (Auto) 1.1 L [place] # (Auto) 1.0 Eos # (Auto) 0.0 Baso # (Auto) 0.0 Abs Immat Gran (auto) 0.43 H Absolute Neuts (auto) 8.7 H Absolute Nucleated RBC 0.000 Nucleated RBC % (auto) 0.0 VBG pH VBG pCO2 VBG pO2 VBG HCO3 VBG O2 Saturation VBG Base Excess Sodium 138 139 Potassium 4.1 D 3.6 Chloride 109 H 106 Carbon Dioxide 19 L 21 L Anion Gap 14 16 BUN 13 13 Creatinine 0.75 0.77 Estim Creat Clear Calc 148.1 144.3 Estimated GFR > 60 > 60 Random Glucose 130 H 123 H Calcium 8.6 D 8.7 Phosphorus 3.1 Magnesium 2.6 Total Bilirubin 0.6 0.5 AST 24 29 ALT 19 24 Alkaline Phosphatase 43 34 L Total Protein 6.6 6.6 Albumin 3.3 L 3.6 Fld Lyme DNA (PCR) Random Vancomycin 14.5 L Lyme Disease DNA (PCR) NOT DETECTED 06/16/23 05:29 WBC RBC Hgb Hct MCV MCH MCHC RDW Plt Count MPV Immature Gran % (Auto) Neut % (Auto) Lymph % (Auto) [place] % (Auto) Eos % (Auto) Baso % (Auto) Lymph # (Auto) [place] # (Auto) Eos # (Auto) Baso # (Auto) Abs Immat Gran (auto) Absolute Neuts (auto) Absolute Nucleated RBC Nucleated RBC % (auto) VBG pH 7.51 H VBG pCO2 28 VBG pO2 36 VBG HCO3 23 VBG O2 Saturation 65.0 VBG Base Excess 1.0 Sodium Potassium Chloride Carbon Dioxide Anion Gap BUN Creatinine Estim Creat Clear Calc Estimated GFR Random Glucose Calcium Phosphorus Magnesium Total Bilirubin AST ALT Alkaline Phosphatase Total Protein Albumin Fld Lyme DNA (PCR) Random Vancomycin Lyme Disease DNA (PCR) Microbiology Microbiology Results: Microbiology 06/13/23 19:03 Cerebrospinal Fluid Gram Stain - Final 06/13/23 19:03 Cerebrospinal Fluid CSF Examination - Final 06/13/23 19:03 Cerebrospinal Fluid Fluid Description - Final 06/13/23 19:03 Cerebrospinal Fluid CSF Culture - Preliminary No growth after 2 days 06/13/23 17:27 Blood - Venous Blood Culture - Final Streptococcus pneumoniae 06/13/23 17:07 Blood - Venous Blood Culture - Final Streptococcus pneumoniae Progress Note: A&P Assessment and plan (1) Streptococcal meningitis: Status: Acute (2) Cerebritis: Status: Acute (3) Multiple cranial neuropathy: Status: Acute Plan Assessment: 42-year-old gentleman admitted with encephalopathy secondary to streptococcal meningitis Plan: Neuro: Encephalopathy secondary to streptococcal meningitis, slowly improving. Complicated by hearing loss and cerebritis. Neurology service care appreciated. Cardiac: No acute issues. Pulmonary: No acute issues. Renal: No acute issues. Endo: No acute issues. GI: No acute issues. ID: Streptococcal meningitis on the background history of splenectomy. Continue vancomycin and ceftriaxone. Heme/Onc: No acute issues. Psych: No acute issues. Miscellaneous: No acute issues. Prophylaxis: Compression devices Diet: Regular Quality Stroke Does the patient have a stroke diagnosis?: No VTE Prior VTE?: No VTE Risk Level:: Medical - moderate - high VTE Device Contraindication: N/A - Device Ordered VTE Drug Contraindication: N/A - Med Ordered
[2023-06-16 14:35] LABS: Vancomycin Random 16.3 mcg/mL (15-20)
[2023-06-16] MEDS: Acetaminophen 325 MG TABLET 650 MG PO (14:51)
[2023-06-16] MEDS: vancomycin HCL 1,250 MG in 0.9 % Sodium Chloride 250 ML 166.67 MG IV (15:39)
--- NOTE | 2023-06-16 17:17 | P.CNID_ITS ---
History of Present Illness Data of Consult Service Date: 06/16/23 Requesting physician: Celio Amos Primary Care Provider: Liam Crowder MD HPI Reason for consult: strep pneumonia meningitis He presents with confusion and agitation He received LP at ER and blood cultures.\ Blood cultures show strep pneumonia and was given Vancomycin and Ceftriaxone 2g bid and steroids. He has hearing loss now. 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 Pneumonia vaccine is unknown. Review of Systems 2 Review of Systems: Yes all other systems are reviewed and are negative [facility] Surgical History Surgical History H/O splenectomy Social History Social History Household Members: Spouse Housing: House Do you presently have visiting nurse or other home services: No Patient Tobacco Use Status: Never used Tobacco Use of substances other than those prescribed or required for medical reasons: No Currently Displaying Signs/Symptoms of Drug Intoxication Withdrawal: No Advance Directives: No Advance Directives Information Provided: No Recently lost weight without trying: Unsure Poor oral hygiene: No service: No Meds Allergies Allergy/AdvReac Type Severity Reaction Status Date / Time diazepam [From VALIUM] Allergy Intermediate UNKNOWN Verified 06/15/23 13:00 Active Medications: Current Medications Acetaminophen (Acetaminophen 325 Mg Tablet) 650 mg PO Q6H PRN PRN Reason: mpain Last Admin: 06/16/23 14:51 Dose: 650 mg Fentanyl (Fentanyl Citrate/Pf 100 Mcg/2 Ml Vial) 25 mcg IVPUSH Q3H PRN; Protocol PRN Reason: Pain, Moderate(Pain Scale 4-6) Last Admin: 06/16/23 12:51 Dose: 25 mcg Acetaminophen (Ofirmev) 1,000 mg in 100 mls @ 400 mls/hr IV Q6H PRN PRN Reason: Pain, Moderate(Pain Scale 4-6) Last Infusion: 06/15/23 12:33 Dose: Infused Vancomycin HCl 1,250 mg/ (Sodium Chloride) 250 mls @ 166.667 mls/hr IV Q8H MARIANELA Last Admin: 06/16/23 15:39 Dose: 166.67 mls/hr Ceftriaxone Sodium 2 gm/ (Sodium Chloride) 50 mls @ 100 mls/hr IV BID MARIANELA Last Infusion: 06/16/23 10:04 Dose: Infused Dexamethasone Sodium Phosphate (14 mg/ Sodium Chloride) 51.4 mls @ 205.6 mls/hr IV Q6H [facility] Last Infusion: 06/16/23 15:28 Dose: Infused Midazolam HCl (Midazolam Hcl/Pf 2 Mg/2 Ml Vial) 4 mg IVPUSH Q4H PRN PRN Reason: Agitation Last Admin: 06/14/23 09:20 Dose: 4 mg Pantoprazole Sodium (Pantoprazole Sodium 40 Mg/10 Ml Vial) 40 mg IVPUSH DAILY@0630 [facility] Last Admin: 06/16/23 05:14 Dose: 40 mg Home Medications Medication Instructions Recorded Confirmed Last Taken Type amlodipine 5 mg-valsartan 160 mg 1 tab PO DAILY 06/14/23 06/14/23 Unknown History tablet Physical Exam 2 Vital Signs: Vital Signs: Last Vital Signs Temp 99.0 F 06/16/23 15:46 Pulse 77 06/16/23 15:46 Resp 18 06/16/23 15:46 BP 124/66 06/16/23 15:46 Pulse Ox 98 06/16/23 15:46 O2 Del Method Room Air 06/16/23 15:46 BMI result Body Mass Index 29.4 Const: General: cooperative HEENT: Head: Yes normal to inspection Face and sinus: Yes normal facial exam Mouth: Normal oral and palatal mucosa present Teeth and gingiva: d entition normal Eyes: General: appearance normal, both eyes and all related structures P upils: Equal, round and reactive pupils present Resp: Effort & Inspection: normal respiratory effort Cardio: Rate: regular rate Rhythm: regular rhythm GI: Palpation (GI): Soft to palpation and nontender : General: Yes no CVA tenderness Back/Spine/Pelvis: Back: no CVA tenderness Skin: General skin exam: no rashes or lesions noted Neuro: Other: deafness,using white board General: moves all extremities Cranial nerves: Yes Equal, round and reactive pupils present Extrem: General: Yes normal to inspection Psych: Other: speaking loudly Results Labs 06/16/23 05:19 06/16/23 05:19 Labs: Short CBC 06/16/23 Range/Units 05:19 WBC 11.3 H (4.8-10.8) X10*3/uL Hgb 10.1 L (14.0-18.0) g/dl Hct 27.8 L (42.0-52.0) % Plt Count 157 L (160-400) X10*3/uL BMP 06/15/23 06/16/23 18:59 05:19 Sodium 138 139 Potassium 4.1 D 3.6 Chloride 109 H 106 Carbon Dioxide 19 L 21 L BUN 13 13 Creatinine 0.75 0.77 Calcium 8.6 D 8.7 Liver Function 06/15/23 06/16/23 Range/Units 18:59 05:19 Total Bilirubin 0.6 0.5 (0.0-1.0) mg/dL AST 24 29 (5-37) U/L ALT 19 24 (0-40) U/L Alkaline Phosphatase 43 34 L (39-117) U/L Albumin 3.3 L 3.6 (3.5-5.0) g/dL Microbiology Microbiology Results: Microbiology 06/13/23 19:03 Cerebrospinal Fluid Gram Stain - Final 06/13/23 19:03 Cerebrospinal Fluid CSF Examination - Final 06/13/23 19:03 Cerebrospinal Fluid Fluid Description - Final 06/13/23 19:03 Cerebrospinal Fluid CSF Culture - Preliminary No growth after 2 days 06/13/23 17:27 Blood - Venous Blood Culture - Final Streptococcus pneumoniae 06/13/23 17:07 Blood - Venous Blood Culture - Final Streptococcus pneumoniae Assessment and Plan (1) Streptococcal meningitis: Status: Acute He has sequelae including deafness.] He had no cognitive dysfunction before and 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 Plan Check HIV test. Continue Ceftriaxone 2 g bid total 14 days Steroids only four doses so can likely stop. Not sure if hearing will return so may need further investigation and accomodation. Needs vaccines for splenectomized person including new conjugate pneumovax vaccine,Hemophilus influenza vaccine and meningococcal vaccine.
[2023-06-17] VITALS (7 sets, daily range): BP systolic 130–154; BP diastolic 75–89; PULSE 61–88; RESP 16–20; TEMP 36.3–36.7; O2SAT 96–99; BMI 28.0
[2023-06-17] MEDS: Acetaminophen 325 MG TABLET 650 MG PO ×2 (00:03→21:17)
[2023-06-17] MEDS: vancomycin HCL 1,250 MG in 0.9 % Sodium Chloride 250 ML 166.67 MG IV ×2 (00:03→08:32)
[2023-06-17] MEDS: Melatonin 3 MG TABLET 6 MG PO (00:04)
[2023-06-17 07:49] LABS: HIV AB/AG Nonreactive (Nonreactive); HIV Num 1 0.07 S/CO (0.00-0.99)
[2023-06-17] MEDS: cefTRIAXone sodium 2 GM in 0.9 % Sodium Chloride 50 ML IV ×2 (08:24→21:21)
[2023-06-17 09:55] LABS: MANUAL DIFF FLAG NO
[2023-06-17 09:59] LABS: Basophils Percent Auto 0.3 % (0-2); Hematocrit 33.1 % (42.0-52.0); Imm Gran Abs Auto 0.31 X10*3/uL (0.00-0.03); Imm Gran Pct Auto 2.4 % (0.0-0.4); Lymphocytes Absolute Auto 1.8 X10*3/uL (1.2-4.9); Lymphocytes Percent Auto 14.4 % (20-40); Mean Corpuscular HGB Conc 36.3 g/dl (31.0-36.0); Mean Corpuscular Hemoglobin 31.7 pg (27.0-33.0); Mean Corpuscular Volume 87.3 fL (80.0-98.0); Mean Platelet Volume 11.3 fL (9.4-12.4); Monocytes Absolute Auto 1.4 X10*3/uL (0.1-1.2); Monocytes Percent Auto 10.7 % (2-11); NRBC Pct Auto 0.3 /100WBC (0.0-0.2); Neutrophils Absolute Auto 9.1 x10*3/uL (2.0-8.3); Neutrophils Percent Auto 72.2 % (45-73); Platelet Count 231 X10*3/uL (160-400); Red Blood Count 3.79 X10*6/uL (4.60-5.80); White Blood Count 12.7 X10*3/uL (4.8-10.8)
[2023-06-17 10:14] LABS: Anion Gap 12 (12-20); Blood Urea Nitrogen 18 mg/dL (9-16); Calcium 8.7 mg/dL (8.4-10.2); Carbon Dioxide 23 mmol/L (22-29); Chloride 109 mmol/L (96-108); Creatinine Clr Calc Pharmacy 142.8; Estimated Glomerular Filt Rate > 60; Glucose Random 144 mg/dL (60-115); Magnesium 2.5 mg/dL (1.6-2.6); Phosphorus 3.6 mg/dL (2.7-4.5); Potassium 3.4 mmol/L (3.3-5.1); Sodium 141 mmol/L (135-145)
--- NOTE | 2023-06-17 11:45 | MHC.CM.PN ---
HCP completed and added to chart. Pt in agreement to referrals to acute rehab, referrals sent via [facility], family and pt said that [facility] is first choice.
--- NOTE | 2023-06-17 12:59 | HO.PM.IMPN ---
Subjective Subjective Date of Service: 06/17/23 Interval History: Seen and evaluated this morning difficult to hear pending PT\OT pending Midline Review of Systems Review of Systems: Yes all other systems are reviewed and are negative Physical Exam Vital Signs: Vital Signs: Last Vital Signs Temp 98 F 06/17/23 12:00 Pulse 65 06/17/23 12:00 Resp 16 06/17/23 12:00 BP 130/75 06/17/23 12:00 Pulse Ox 99 06/17/23 12:00 O2 Del Method Room Air 06/17/23 07:16 BMI result Body Mass Index 28.0 Const: Other: Constitutional : Awake, interactive, not in distress Neck : Normal inspection, Supple Cardiovascular : RRR, no JVP, no lower extremity edema Respiratory : good bilateral air entry, no crackles, wheezes or rhonchi Gastrointestinal: soft, lax, Normal bowel sounds, Non tender Skin : Warm, Dry Neurological : Alert & oriented, difficult to hear, using white board to communicate Objective Data Active Medications Acetaminophen (Acetaminophen 325 Mg Tablet) 650 mg PO Q6H PRN PRN Reason: mpain Last Admin: 06/17/23 00:03 Dose: 650 mg Documented By: SEBASTIAN Fentanyl (Fentanyl Citrate/Pf 100 Mcg/2 Ml Vial) 25 mcg IVPUSH Q3H PRN; Protocol PRN Reason: Pain, Moderate(Pain Scale 4-6) Last Admin: 06/16/23 12:51 Dose: 25 mcg Documented By: FEDERICA Ceftriaxone Sodium 2 gm/ (Sodium Chloride) 50 mls @ 100 mls/hr IV BID [facility] Last Infusion: 06/17/23 09:25 Dose: Infused Documented By: ALAINA Dexamethasone Sodium Phosphate (14 mg/ Sodium Chloride) 51.4 mls @ 205.6 mls/hr IV Q6H [facility] Last Infusion: 06/17/23 08:55 Dose: Infused Documented By: ALAINA Melatonin (Melatonin 3 Mg Tablet) 6 mg PO BEDTIME PRN PRN Reason: Insomnia Last Admin: 06/17/23 00:04 Dose: 6 mg Documented By: SEBASTIAN Midazolam HCl (Midazolam Hcl/Pf 2 Mg/2 Ml Vial) 4 mg IVPUSH Q4H PRN PRN Reason: Agitation Last Admin: 06/14/23 09:20 Dose: 4 mg Documented By: DAMON Labs 06/17/23 09:00 06/17/23 09:00 Labs: Laboratory Results - last 24 hr 06/16/23 06/16/23 06/17/23 14:09 17:46 09:00 MCV 87.3 MCH 31.7 MCHC 36.3 H RDW 14.0 Plt Count 231 D MPV 11.3 Immature Gran % (Auto) 2.4 H Neut % (Auto) 72.2 Lymph % (Auto) 14.4 L [place] % (Auto) 10.7 Eos % (Auto) 0.0 Baso % (Auto) 0.3 Lymph # (Auto) 1.8 [place] # (Auto) 1.4 H Eos # (Auto) 0.0 Baso # (Auto) 0.0 Abs Immat Gran (auto) 0.31 H Absolute Neuts (auto) 9.1 H Absolute Nucleated RBC 0.040 H Nucleated RBC % (auto) 0.3 H Anion Gap 12 Estim Creat Clear Calc 142.8 Estimated GFR > 60 Random Glucose 144 H Calcium 8.7 Phosphorus 3.6 Magnesium 2.5 Random Vancomycin 16.3 HIV 1&2 Ab/P24 Ag 4thGn Nonreactive Microbiology Microbiology Results: Microbiology 06/13/23 19:03 Gram Stain - Final Cerebrospinal Fluid CSF Examination - Final Fluid Description - Final CSF Culture - Final No growth after 3 days. 06/13/23 17:27 Blood Culture - Final Blood - Venous Streptococcus pneumoniae 06/13/23 17:07 Blood Culture - Final Blood - Venous Streptococcus pneumoniae Assessment and Plan (1) Cerebritis: Status: Acute (2) Acute purulent meningitis: Status: Acute (3) Streptococcal meningitis: Status: Acute Plan A 42 years old male who was admitted to ICU for Meningitis. transferred to medical floor for care. Acute Streptococcus meningitis with cerebritis Has Deafness which will need follow up as outpatient Continue Steroids Continue Ceftriaxone for 2 weeks, 2 mg bid ID input appreciated Will need vaccination for Strep and others Neurology input appreciated Midline placement PT\OT eval DVT PPx Lovenox The patient will need overnight stay pending PT\OT, Midline placement for IV Abx and safe discahrge plan Quality Stroke Does the patient have a stroke diagnosis?: No VTE Prior VTE?: No VTE Risk Level:: Medical - moderate - high VTE Device Contraindication: N/A - Device Ordered VTE Drug Contraindication: N/A - Med Ordered
--- NOTE | 2023-06-17 14:42 | HO.MIDLINE_ITS ---
Midline Insertion MIDLINE INSERTION Diagnosis: menigitis Indication: ABT x 4 wks Pertinent Labs: reviewed Technique: Using sterile technique including cap and mask, glove and drape, the right arm was prepped and draped in the usual sterile fashion of full barrier technique with CHG. Using ultrasound guidance, right brachial vein access was obtained . 20G x 8cm non PASV midline catheter was positioned. The procedure was performed in rm [id number]. Ultrasound was used to document vein patency and for needle entry. A formal ultrasound picture was recorded. Vascular Diplomatic Officer has released the line for use and it is currently dressed with a StatLock, Tegaderm, and CHG disc. Verification has been performed for blood return and line patency. Arm Circumference: 32cm Equipment: BARD PowerGlide ST Midline catheter Catheter Type: 20G x 8cm non PASV Lot #: [id number]
[2023-06-17] MEDS: Heparin Sodium,Porcine Flush 50 UNITS, 0.9 % Sodium Chloride Flush 5 ML IVFLUSH ×2 (15:50→23:50)
--- NOTE | 2023-06-18 | ECG_ITS ---
Test Reason : BRADYCARDIA Blood Pressure : / mmHG Vent. Rate : 063 BPM Atrial Rate : 063 BPM P-R Int : 158 ms QRS Dur : 098 ms QT Int : 454 ms P-R-T Axes : 013 015 020 degrees QTc Int : 464 ms Normal sinus rhythm Normal ECG When compared with ECG of 13-JUN-2023 20:55, QRS axis Shifted left T wave inversion no longer evident in Lateral leads Referred By: Chante Ponce Electronically Signed By:RASHEEDA BOWLES
[2023-06-18 03:13] VITALS: BP 151/81; PULSE 63; RESP 18; TEMP 36.5; O2SAT 97
[2023-06-18 07:48] VITALS: BP 153/86; PULSE 62; RESP 20; TEMP 36.8
[2023-06-18 08:02] VITALS: BP 153/86; PULSE 62
[2023-06-18] MEDS: cefTRIAXone sodium 2 GM in 0.9 % Sodium Chloride 50 ML IV (09:37)
[2023-06-18] MEDS: Heparin Sodium,Porcine Flush 50 UNITS, 0.9 % Sodium Chloride Flush 5 ML IVFLUSH (09:38)
[2023-06-18 11:16] VITALS: BP 137/75; PULSE 67; RESP 19; TEMP 36.8; O2SAT 98
--- NOTE | 2023-06-18 11:36 | PM.DS ---
DS: Providers Provider Date of Service: 06/18/23 Date of admission: 06/13/23 19:56 Primary care physician: Liam Crowder MD Consults: 06/15/23 14:52 Consult to Neurology Stat Consulting Provider: [facility] Reason for consultation: Streptococcal meningitis, hearing loss, facial droop Has provider been notified: No 06/16/23 11:45 Consult to Infectious Diseases Routine Consulting [place] [facility] [place] Reason for consultation: strep pneumonia meningitis and bacteremia DS: Diagnosis Discharge Diagnosis (1) Cerebritis: Status: Acute (2) Acute purulent meningitis: Status: Acute (3) Streptococcal meningitis: Status: Acute (4) Deafness: Status: Acute DS: Summary Hospital Course Hospital Course: Admission note HPI Patient is a 42-year-old male with underlying history of hypertension, who presented via EMS due to altered mental status and delirium as reported by his in the emergency room.? Reportedly patient had been feeling sick for the past 4 days, he had been feeling weak and tired, had low appetite but had been drinking water and Gatorade. ?and came back from work which is unusual from him.? Had slept a whole day on and reported having some fever and chills.? Today apparently around 01:00 o'clock in the afternoon he had some difficulty talking appeared to be confused, she then called the ambulance.? ER personnel noted the patient was nonverbal and had nuchal rigidity.? Otherwise hemodynamically stable. In the emergency room his workup revealed a white count of 18.6, which then increased to 9.6 with 35% bands, ESR of 81, sodium of 126, potassium 2.9, chloride 91, BUN 13, creatinine 0.98, osmolality 269, lactic acid 6.8 followed by 2.0, phosphorus 1.9, magnesium 1.8.? CT scan of the head revealed no intracranial abnormalities, he did have an LP done which according to ER physician's report is showed very cloudy CSF, it is further analysis reveals 253 MM*3 per high-power field, total protein 661, glucose less than 3; all of which is concerning for acute bacterial meningitis.Patient was treated with acyclovir, Rocephin vancomycin.? He was given 3 L of fluid.? Given his significant agitation Haldol and Versed had been given, were then called for admission. During my evaluation, the patient is completely obtunded, nonverbal and heart rate response to any verbal stimuli including sternal rub. Hospital course Admitted for evaluation of altered mentation and delerium. Found to have Acute Streptococcus meningitis with cerebritis confirmed by CSF studies and positive blood culture and CSF PCR for Streptococcus pneumonia. Developed Deafness which will need follow up as outpatient with Audiogram and ENT evaluation along with neurology follow up with dr Nj who saw him during hospital stay. Treated with IV Steroids and Ceftriaxone for 2 weeks, 2 mg bid per Infectious disease recommendations. Will need vaccination for Strep and other encapsulated pathogens. Midline placed for antibiotics. PT\OT evaluation recommended acute rehab placement. Follow up with dr Nj as outpatient within 2 weeks Call and follow with ENT as outpatient for further evaluation Continue Prednisone as prescribed Ceftriaxone for 9 more days Time Attestation Discharge coordination time: Greater than 30 minutes Quality: Safe Use of Opioids Does Pt have an Active Cancer Diagnosis on the Problem List?: No Quality: Stroke Does the patient have a stroke diagnosis?: No Physical Exam Vital Signs: Vital Signs: Last Vital Signs Temp 98.3 F 06/18/23 11:16 Pulse 67 06/18/23 11:16 Resp 19 06/18/23 11:16 BP 137/75 06/18/23 11:16 Pulse Ox 98 06/18/23 11:16 O2 Del Method Room Air 06/18/23 11:16 O2 Flow Rate 98 06/18/23 07:48 BMI result Body Mass Index 28.0 Const: Other: Constitutional : Awake, interactive, not in distress Neck : Normal inspection, Supple Cardiovascular : RRR, no JVP, no lower extremity edema Respiratory : good bilateral air entry, no crackles, wheezes or rhonchi Gastrointestinal: soft, lax, Normal bowel sounds, Non tender Skin : Warm, Dry Neurological : Alert & oriented, difficult to hear, using white board to communicate DS: Data Imaging Chest x-ray: Radiologist's impression: ITS Impressions Head CT 06/13/23 17:56 IMPRESSION: 1. No acute intracranial pathology. 2. Mucoperiosteal thickening bilateral maxillary and sphenoid sinuses, left greater than right. Chest X-Ray 06/13/23 18:00 IMPRESSION: Hypoexpanded with basilar markings more likely due to atelectasis. Brain MRI 06/15/23 21:21 IMPRESSION: Motion degraded examination 1. Diffusion restricting layering debris within the occipital horns of the lateral ventricles is compatible with pyogenic ventriculitis. 2. Multifocal sulcal CSF FLAIR nonsuppression, likely reflecting leptomeningitis. 3. Multifocal small regions of parenchymal diffusion restriction and FLAIR hyperintense signal involving the medial right occipital lobe, posterior inferior left temporal lobe, and cerebellar hemispheres are compatible with acute infarcts and/or cerebritis. Above impression was communicated to Opal Cueto NP on 06/15/2023 9:35 PM Discharge Plan Discharge Anticipated Discharge Date/Time: 06/18/23 11:10 Patient Disposition: er SNF Discharge Diagnosis: Meningitis Referrals: [facility] [Outside] - 1 Week Lon Larios [Physician] - 2 Weeks (Post Meningitis Deafness. for Audiogram, imaging studies and possible need for Cochlear implant. ) Liam Crowder MD [Primary Care Provider] - 1 Week Discharge Medications: New ceftriaxone 2 gram Recon Soln 2 g IV BID Qty: 9 0RF prednisone 20 mg tablet See Taper PO DAILY Qty: 15 0RF Taper: Prednisone 60 mg daily for 2 Days and 0 Hour 40 mg daily for 2 Days and 0 Hour 20 mg daily for 2 Days and 0 Hour 10 mg daily for 2 Days and 0 Hour Continued amlodipine-valsartan 5-160 mg tablet 1 tab PO DAILY Discharge Orders: Discharge Order (Routine); Ordered 06/18/23 Ordered By: Flaquita Carlos Diet: Advance to usual diet Activity on Discharge: As tolerated Stand Alone Forms: Patient Portal Discharge page Care Plan Goals: Read below Health Concerns: Read below Plan of Treatment: Read below Assessment: Follow up with dr Nj as outpatient within 2 weeks Call and follow with ENT as outpatient for further evaluation Continue Prednisone as prescribed Ceftriaxone for 9 more days Discharge Date/Time: 06/18/23 13:09
--- NOTE | 2023-06-18 11:45 | PC.NURSE ---
Asked to assess Right upper arm midline. Blood return obtained quickly. Catheter flushed easily. No intervention needed. Pt's RN was notified and patient was returned to his room.
--- NOTE | 2023-06-18 12:34 | MHC.CM.PN ---
Pt has been medically cleared for DC, he will go today to [facility] acute rehab via ambulance.
--- NOTE | 2023-06-18 13:17 | PC.NURSE ---
Called report to nurse at [facility] short term rehab.
[2023-06-18 13:39] LABS: Lyme IgG CSF Bands Present 41kD; Lyme IgG CSF Immunoblot BAND(S) PRESENT; Lyme IgM CSF Immunoblot NO BANDS DETECTED
[2023-06-18 13:53] LABS: Leptospira DNA Source CSF; Leptospira DNA, Qual RT-PCR NOT DETECTED
== END 2023-06-18 13:09 | disposition skilled nursing facility (03) | DRG 720 ==
LOC: HO.ED 17:51 → HO.EDOVER 21:23 → HO.ICU 21:25 → HO.IMC 06-16 13:41
PROVIDERS: Internal Medicine; Internal Medicine Critical Care Medicine; Internal Medicine Pulmonary Disease; Physician Assistant Medical; Admitting Provider Physician Assistant Medical; Emergency Provider Emergency Medicine Emergency Medical Services; PCP Internal Medicine; Visit Provider Student in an Organized Health Care Education/Training Program
PROC: 05H933Z Insertion of Infusion Device into Right Brachial Vein, Percutaneous Approach (ICD-10-PCS; principal; 2023-06-17 11:30)
DX: A41.9 Sepsis, unspecified organism (principal); G00.1 Pneumococcal meningitis; E87.20 Acidosis, unspecified; F05 Delirium due to known physiological condition; E87.1 Hypo-osmolality and hyponatremia; D69.6 Thrombocytopenia, unspecified; H91.8X3 Other specified hearing loss, bilateral; G52.7 Disorders of multiple cranial nerves; G04.90 Encephalitis and encephalomyelitis, unspecified; J32.8 Other chronic sinusitis; E87.6 Hypokalemia; E86.1 Hypovolemia; G92.8 Other toxic encephalopathy; R65.20 Severe sepsis without septic shock; I10 Essential (primary) hypertension; Z90.81 Acquired absence of spleen; Z20.822 Contact with and (suspected) exposure to COVID-19; Z79.899 Other long term (current) drug therapy
CPT/HCPCS: 0241U; 36410; 36415; 70450; 70553; 71045; 80048; 80053; 80202; 80307; 81001; 81003; 82550; 82803; 82945; 83605; 83690; 83735; 83930; 83935; 84100; 84157; 84300; 84443; 84484; 85007; 85025; 85027; 85610; 85652; 85730; 86617; 87015; 87040; 87070; 87077; 87205; 87389; 87476; 87483; 87502; 87798; 89051; 93005; 97116; 97163; 97166; 97530; 97535; 99285; A9585; C1751; C1758; C9113; J0131; J0133; J0290; J0613; J0692; J0696; J1100; J1630; J1642; J2250; J3010; J3370; J3371; J3475; J3480; J7120; P9047

== ENCOUNTER → 2023-06-13 17:03 | Outpatient (BNV) | payer BC, SELFPAY | PROVIDERS: Admitting Provider Physician Assistant Medical; Emergency Provider Emergency Medicine Emergency Medical Services; Visit Provider Internal Medicine Cardiovascular Disease | DX: R94.31 Abnormal electrocardiogram [ECG] [EKG] (principal) | CPT/HCPCS: 93010 ==

== ENCOUNTER 2023-06-13 19:56 | Outpatient (BNV) | payer BC, SELFPAY | END 2023-06-18 08:10 | PROVIDERS: Admitting Provider Physician Assistant Medical; Emergency Provider Emergency Medicine Emergency Medical Services; PCP Internal Medicine; Visit Provider Internal Medicine | DX: R00.1 Bradycardia, unspecified (principal) | CPT/HCPCS: 93010 ==

== ENCOUNTER → 2023-06-13 19:56 | Outpatient (BNV) | payer BC, SELFPAY | PROVIDERS: Admitting Provider Physician Assistant Medical; Emergency Provider Emergency Medicine Emergency Medical Services; Visit Provider Internal Medicine Pulmonary Disease | DX: G00.2 Streptococcal meningitis (principal); G04.90 Encephalitis and encephalomyelitis, unspecified; G52.7 Disorders of multiple cranial nerves | CPT/HCPCS: 99232; 99291 ==

== ENCOUNTER → 2023-06-13 19:56 | Outpatient (BNV) | payer BC, SELFPAY | PROVIDERS: Admitting Provider Physician Assistant Medical; Emergency Provider Emergency Medicine Emergency Medical Services; PCP Internal Medicine; Visit Provider Student in an Organized Health Care Education/Training Program | DX: G04.90 Encephalitis and encephalomyelitis, unspecified (principal); G00.9 Bacterial meningitis, unspecified; G00.2 Streptococcal meningitis; H91.90 Unspecified hearing loss, unspecified ear | CPT/HCPCS: 99232; 99239 ==

== ENCOUNTER → 2023-06-13 19:56 | Outpatient (BNV) | payer BC, SELFPAY | PROVIDERS: Admitting Provider Physician Assistant Medical; Emergency Provider Emergency Medicine Emergency Medical Services; PCP Internal Medicine; Visit Provider Psychiatry & Neurology Neurology | DX: G52.7 Disorders of multiple cranial nerves (principal); G00.9 Bacterial meningitis, unspecified; G04.90 Encephalitis and encephalomyelitis, unspecified | CPT/HCPCS: 99223 ==

== ENCOUNTER → 2023-06-13 19:56 | Outpatient (BNV) | payer BC, SELFPAY | PROVIDERS: Admitting Provider Physician Assistant Medical; Emergency Provider Emergency Medicine Emergency Medical Services; Visit Provider Internal Medicine Critical Care Medicine | DX: G00.9 Bacterial meningitis, unspecified (principal) | CPT/HCPCS: 99291; 99292 ==

== ENCOUNTER → 2023-06-13 19:56 | Outpatient (BNV) | payer BC, SELFPAY | PROVIDERS: Admitting Provider Physician Assistant Medical; Emergency Provider Emergency Medicine Emergency Medical Services; PCP Internal Medicine; Visit Provider Internal Medicine | DX: G00.2 Streptococcal meningitis (principal) | CPT/HCPCS: 99222 ==

== ENCOUNTER 2023-07-08 14:58 | Outpatient (REF) | payer BC, SELFPAY ==
[2023-07-10 21:13] LABS: IgA 338 mg/dL (47-310); IgG 1331 mg/dL (600-1640); IgM 28 mg/dL (50-300)
== END 2023-07-08 14:59 | disposition home or self-care (01) ==
LOC: HO.LAB 14:58
PROVIDERS: PCP Internal Medicine; Visit Provider Internal Medicine
DX: H91.90 Unspecified hearing loss, unspecified ear (principal); R78.81 Bacteremia; B95.3 Streptococcus pneumoniae as the cause of diseases classified elsewhere; G00.9 Bacterial meningitis, unspecified
CPT/HCPCS: 36415; 82784

== ENCOUNTER 2023-07-08 14:58 | Outpatient (AMB) | payer BC, SELFPAY ==
[2023-07-08 15:03] VITALS: PULSE 100; O2SAT 98; BMI 26.8
--- NOTE | 2023-07-08 15:03 | MHC.OFFVIS ---
Intake Vital Signs 07/08/23 15:03 Height 5 ft 10 in Weight 187 lb BMI 26.8 Pulse 100 Pulse Source Pulse Oximeter Pulse Oximetry (%) 98 Intake Visit Reasons: Ref.[facility],Meningitis Allergies diazepam [From VALIUM] Allergy (Intermediate, Verified 07/08/23 15:04) UNKNOWN HPI Ref.[facility],Meningitis HPI Details I had seen him in hospital. He had strep pneumonia meningitis and is now profoundly deaf in both ears. He is seeing Dr Aguila of ENT and is going to get cochlear implants. [facility] Medical History (Updated 07/19/23 @ 21:39 by Larisa Chaidez MD) Acute bacterial meningitis Pneumococcal bacteremia Multiple cranial neuropathy Surgical History H/O splenectomy Social History Household Members: Spouse Housing: House Do you presently have visiting nurse or other home services: No Patient Tobacco Use Status: Never used Tobacco service: No Review of Systems Const All systems reviewed & are unremarkable except as noted in HPI and below Physical Exam Vital Signs: Last Vital Signs Pulse 100 07/08/23 15:03 Pulse Ox 98 07/08/23 15:03 BMI result Body Mass Index 26.8 Const General: cooperative Orientation/consciousness: patient oriented x3 HEENT Head: Yes normal to inspection Mouth: Normal oral and palatal mucosa present Eyes General: appearance normal, both eyes and all related structures Pupils: Equal, round and reactive pupils present Resp Effort & Inspection: normal respiratory effort Cardio Rate: regular rate Rhythm: regular rhythm GI Palpation (GI): Soft to palpation and nontender General: Yes no CVA tenderness Back/Spine/Pelvis Back: no CVA tenderness Skin General skin exam: no rashes or lesions noted Neuro General: patient oriented x3 Cranial nerves: Yes CN's II-XII intact bilaterally and Yes Equal, round and reactive pupils present Extrem General: Yes normal to inspection Psych Appearance: grossly normal Assessment & Plan Assessment & Plan (1) Deafness: Comment: strep pneumonia hearing loss Code(s): H91.90 - Unspecified hearing loss, unspecified ear Plan: He is off antibiotics He has splenectomy as risk (2) Pneumococcal bacteremia: Code(s): R78.81 - Bacteremia; B95.3 - Streptococcus pneumoniae as the cause of diseases classified elsewhere Plan: Would check IgA and IgG level. (3) Acute bacterial meningitis: Code(s): G00.9 - Bacterial meningitis, unspecified Plan na Orders: Orders Immunoglobulins,IgG IgA IgM 07/08/23 H91.90 - Unspecified hearing loss, unspecified ear Coding Level of Care Code Est Pt Level 3 (20474) Diagnoses Deafness H91.90 Pneumococcal bacteremia R78.81; B95.3 Acute bacterial meningitis G00.9
== END 2023-07-08 16:04 | disposition home or self-care (01) ==
LOC: HO.HID 14:59
PROVIDERS: PCP Internal Medicine; Visit Provider Internal Medicine
DX: H91.90 Unspecified hearing loss, unspecified ear (principal); R78.81 Bacteremia; B95.3 Streptococcus pneumoniae as the cause of diseases classified elsewhere; G00.9 Bacterial meningitis, unspecified
CPT/HCPCS: 99213

== ENCOUNTER 2024-01-01 14:49 | Outpatient (AMB) | payer BC, SELFPAY ==
--- NOTE | 2024-01-01 14:58 | A.OFFVIS_ITS ---
Vital Signs 01/01/24 15:00 Height 51 ft Weight 181 lb BMI 0.3 BP 142/80 H Blood Pressure Location Rt brachial Position Sitting Pulse 84 Pulse Source Pulse Oximeter Pulse Oximetry (%) 99 Oxygen Delivery Method Room Air Intake Visit Reasons: E-MOTOR BUILDER WINDER: Meningitis-LVM Intake Note: Patient presents for new patient evaluation. Allergies diazepam [From VALIUM] Allergy (Intermediate, Verified 01/01/24 15:04) UNKNOWN Medication List - Last Reconciled 01/01/24 by AGUSTINA Ledezma amlodipine-valsartan 5-160 mg 1 tab PO DAILY prednisone See Taper mg PO DAILY HPI Comments Details: Left-handed 43-yr-old male presents for neurological evaluation for f/u bacterial meningitis. 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 Pt was diagnosed w/ Streptococcus pneumoniae bacterial meningitis in Jun 2023. He notes prior to presenting to the ER via 911, he had had a few days of feeing like he had the flu, had occipital headache, neck stiffness. Then he began to feel sweeping numbness across the body, which 2 hrs later was f/b confusion and delirum- thus his called 911, and next thing pt recalled was waking up in [facility] a day or so later. During the hospitalization, he was found to have right facial weakness and hearing loss. Brain MRI showed: Diffusion restricting layering debris within the occipital horns of the lateral ventricles is compatible with pyogenic ventriculitis; Multifocal sulcal CSF FLAIR nonsuppression, likely reflecting leptomeningitis; Multifocal small regions of parenchymal diffusion restriction and FLAIR hyper intense signal involving the medial right occipital lobe, posterior inferior left temporal lobe, and cerebellar hemispheres are compatible with acute infarcts and/or cerebritis. LP showed- positive lymphoctytosis, pleocytosis, and S pneumoniae. He was tx'd w/ Vancomycin and Ceftriaxone 2g bid and steroids. Upon discharge, cognition returned to baseline however pt had residual right facial weakness, fatou deafness, balance difficulties. He was d/'c to [facility] to complete IV ABT and steorid tx. Then had home PT f/b out-pt PT through [facility] for balance, which was helpful. CVurrently. he feels he is 70% back to baseline. States prior to the meningitis, he felt he was in the best shape of his life. For the fatou hearing loss. He has undergo fatou Cochlear implant on July [address] Aguila at [facility], and device was turned on the next week. He is f/b [facility] audiology. Hearing is improving, however continues to have difficulty hearing especially w/ speech. Using apps on his phone w/ varying success. He describes the balance difficulties, as like he was on a ship out in the ocean. He has had 2-3 falls, where he fell while carrying something and feet got stuck (say carrying wood in). He has lost his balance- if turning too quickly. Has not noticed this in 1.5 months. His balance is improving, in August he was able together on the bike, In September he was able to ride the bike but not straight, now can ride the bike- but still feels like he does not have as much control staying staright as before- so is not comfortable riding too close to someone else. He has been able to participate in Spin class- has more difficulty hearing and following along. He has been swimming, but has had to be more cautious. He is not aware of any cognitive effects. His right facial weakness has improved. Does note that he has a LUE tremor now, but it is not bothersome. Denies dysphagia, numbness/tingling, weakness, headaches, seizures. Denies vision changes. States his f/u eye exam- they decreased his usual near sighted prescription. He just returned to work ~ 2 weeks ago. 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 He describes his childhood epilepsy- last seizure was > 20 yrs ago. He had grand-mal seizures upon falling asleep or waking up. He had taken Tegretol in the past- tolerated well. [facility] Medical History (Updated 01/02/24 @ 17:43 by AGUSTINA Ledezma) Acute bacterial meningitis Pneumococcal bacteremia Multiple cranial neuropathy Surgical History H/O splenectomy Family History (Updated 01/01/24 @ 15:05 by MIGUEL Granado) Mother Skin cancer Social History (Updated 01/01/24 @ 15:05 by MIGUEL Granado) Household Members: Spouse Housing: House Do you presently have visiting nurse or other home services: No Alcohol intake: former Patient Tobacco Use Status: Never used Tobacco service: No Review of Systems Const All systems reviewed & are unremarkable except as noted in HPI and below Physical Exam Vital Signs: Last Vital Signs Pulse 84 01/01/24 15:00 BP 142/80 H 01/01/24 15:00 Pulse Ox 99 01/01/24 15:00 Oxygen Delivery Method Room Air 01/01/24 15:00 BMI result Body Mass Index 0.3 Const General: cooperative and no acute distress Orientation/consciousness: patient oriented x3 HEENT Head: Yes normocephalic Resp Effort & Inspection: normal respiratory effort and able to speak in complete sentences Neuro Other: Mild LUE postural tremor Unsteady during tandem walk General: patient oriented x3 and CN's II-XI intact bilaterally Cranial nerves: Yes Individual cranial nerve findings present II: normal, III: normal, IV: normal, V: normal, : normal, VII: abnormal (Mild lower facial asymmetry- ? right hemispasm), VIII: abnormal (fatou [place], Bilateral cochlear implants), IX: normal, X: normal, XI: normal and XII: normal Gait exam (Neuro): Normal gait present Motor exam (neuro): 5/5 motor strength present throughout Deep tendon reflexes (DTR's): Right triceps reflex intensity grade: 1+, Left triceps reflex intensity grade: 1+, Rt Biceps (C5, C6): 1+, Left biceps reflex intensity grade: 1+, Right brachioradialis reflex intensity grade: 1+, Left brachioradialis reflex intensity grade: 1+, Right patellar reflex intensity grade: 1+ and Left patellar reflex intensity grade: 1+ Coordination: [id number] test normal and [id number] test normal Romberg Test: Negative Pupils: Normal pupillary reactivity/response: bilateral Psych Other: Speech slow, slightly elevated- pt states he is trying to hear himself speak. Appearance: grossly normal Mental Status: mental status grossly normal Affect: normal affect Attitude: cooperative Thought process: Normal thought process present Assessment & Plan Assessment & Plan (1) H/O bacterial meningitis: Code(s): Z86.61 - Personal history of infections of the central nervous system Category: Medical (2) Deafness: Comment: strep pneumonia hearing loss Code(s): H91.90 - Unspecified hearing loss, unspecified ear Category: Medical (3) Difficulty balancing: Code(s): R29.818 - Other symptoms and signs involving the nervous system Category: Medical Plan Discussed that we cannot specifically predict prognosis of pt's post-meningitis recovery, though we would expect pt to continue to have meaningful recovery within the 1st 12-24 months, the residual symptoms may persist longer or become permanent. However, pt does have positive factors which increase lieklihood of peter favorable outcome- such as younger age at time of infection, engaging in regular physical activity (prior to and since infection), no current indications of cognitive or emotional sequelae, no indications of seizure activity. Pt advised to undergo:EEG Brain MRI w/wo to assess for resolution of cerebral leptomeningitis and white matter lesions observed during acute bacterial meningitis. 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 Continue ZPT exercises. Continue increasing regular physical activity. Advised to use caution to avoid preventable head/injuries or concussions. Patient seen in collaboration with Dr. Barragan. Will f/u upon review of above and in clinic in 6 months or sooner prn. Orders: Orders MR head/brain wo/w con 01/01/24 G00.9 - Bacterial meningitis, unspecified, H91.90 - Unspecified hearing loss, unspecified ear, R25.1 - Tremor, unspecified EEG electroencephalogram 01/01/24 G00.9 - Bacterial meningitis, unspecified, R25.1 - Tremor, unspecified Referrals Speech and Hearing Referral H91.90 - Unspecified hearing loss, unspecified ear Coding Level of Care Code New Pt Level 4 (05637) Diagnoses H/O bacterial meningitis Z86.61 Deafness H91.90 Difficulty balancing R29.818
[2024-01-01 15:00] VITALS: BP 142/80; PULSE 84; O2SAT 99
== END 2024-01-01 16:08 | disposition home or self-care (01) ==
PROVIDERS: PCP Internal Medicine; Visit Provider Nurse Practitioner Family
DX: Z86.61 Personal history of infections of the central nervous system (principal); H91.90 Unspecified hearing loss, unspecified ear; R29.818 Other symptoms and signs involving the nervous system
CPT/HCPCS: 99204

== ENCOUNTER → 2024-01-01 14:49 | Outpatient (BNVA) | payer BC, SELFPAY | PROVIDERS: PCP Internal Medicine; Visit Provider Nurse Practitioner Family ==

== ENCOUNTER 2024-03-02 09:06 | Outpatient (REF) | payer BC, SELFPAY ==
--- NOTE | 2024-03-02 09:09 | EEG_ITS ---
FINDINGS: Waking background activity consists of a moderate voltage 9 to 9.5 hertz posterior alpha frequency that attenuates well with eye opening while low-voltage fast frequencies predominate anteriorly. Photic stimulation produces symmetrical photic driving responses from the posterior quadrants. Hyperventilation was omitted. No sleep stages are identified. No focal, lateralizing, or paroxysmal discharges are seen. IMPRESSION: This waking EEG is within normal limits. MD BENITO Lawson/FAUSTO / [id number]
== END 2024-03-02 09:07 | disposition home or self-care (01) ==
LOC: HO.NEURO 09:06
PROVIDERS: PCP Internal Medicine; Visit Provider Nurse Practitioner Family
DX: R25.1 Tremor, unspecified (principal); G00.9 Bacterial meningitis, unspecified
CPT/HCPCS: 95816

== ENCOUNTER 2024-07-12 12:58 | Outpatient (AMB) | payer BC, SELFPAY ==
--- NOTE | 2024-07-12 13:10 | MHC.OFFVIS ---
Vital Signs 07/12/24 13:12 Height 5 ft 9 in BP 160/100 H Blood Pressure Location Lt brachial Position Sitting Pulse 78 Pulse Source Pulse Oximeter Pulse Oximetry (%) 98 Oxygen Delivery Method Room Air Intake Visit Reasons: 6mo follow up Intake Note: Patient presents follow up meningitis. MRI/EEG in chart. Speech evaluation was booked 01/13/24, pt cx and r/s to 07/08/24 at 9:30 Allergies diazepam [From VALIUM] Allergy (Intermediate, Verified 01/01/24 15:04) UNKNOWN Medication List - Last Reconciled 07/12/24 by AGUSTINA Ledezma amlodipine-valsartan 5-160 mg 1 tab PO DAILY prednisone See Taper mg PO DAILY HPI Comments Details: History of Present Illness The patient is a 43-year-old male presenting for follow-up care post-bacterial meningitis. Interval EEG was normal. He has not yet had previously ordered brain MRI, as both [facility] and [place] radiology centers were not comfortable performing MRI due to presence of cochlear implants. However, patient states Dr. Mingo [place] who implanted cochlear implants has told him that his cochlear implants are conditional the MRI compatible. Significant hearing loss continues, and is s/p bilateral cochlear implants. however he requires drawing in hand support. Cognitive improvement noted. Attended speech therapy, which he felt was beneficial. He also completed neurological physical therapy, which is helps his balance balance. Patient states he has not noticed the LUE tremor. Patient denies any interval seizure activity. Denies spacing out episodes. Patient again notes history childhood epilepsy, described grand mal seizure which always occur at sleep onset or upon awakening. with no seizures recently. Patient has continued to work. 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 Review of Systems - Neurological: Reports ongoing hearing loss, past balance issues, improved cognitive recall, no recent tremors or seizures. - ENT: Reports significant hearing loss, cochlear implant in place. - General: Denies recent headaches, denies any cognitive issues such as memory lapses. [facility] Medical History (Updated 07/12/24 @ 14:49 by AGUSTINA Ledezma) Acute bacterial meningitis Pneumococcal bacteremia Multiple cranial neuropathy Surgical History H/O splenectomy Family History (Updated 01/01/24 @ 15:05 by MIGUEL Granado) Mother Skin cancer Social History (Updated 01/01/24 @ 15:05 by MIGUEL Granado) Household Members: Spouse Housing: House Do you presently have visiting nurse or other home services: No Alcohol intake: former Patient Tobacco Use Status: Never used Tobacco service: No Physical Exam Vital Signs: Last Vital Signs Pulse 78 07/12/24 13:12 BP 160/100 H 07/12/24 13:12 Pulse Ox 98 07/12/24 13:12 Oxygen Delivery Method Room Air 07/12/24 13:12 Const General: cooperative and no acute distress Orientation/consciousness: patient oriented x3 HEENT Head: Yes normocephalic Resp Effort & Inspection: normal respiratory effort and able to speak in complete sentences Neuro Other: No visible LUE tremor General: patient oriented x3 Cranial nerves: Yes Individual cranial nerve findings present II: normal, III: normal, IV: normal, V: normal, : normal, VII: abnormal (Mild lower facial asymmetry- ? right hemispasm), VIII: abnormal (fatou SANTO DOMINGO, Bilateral cochlear implants), IX: normal, X: normal, XI: normal and XII: normal Gait exam (Neuro): Normal gait present Motor exam (neuro): 5/5 motor strength present throughout Coordination: hlnjtp-eh-obgt test normal and ptgm-fk-yveo test normal Romberg Test: Negative Pupils: Normal pupillary reactivity/response: bilateral Psych Other: Speech slow, slightly elevated- pt states he is trying to hear himself speak. Appearance: grossly normal Mental Status: mental status grossly normal Affect: normal affect Attitude: cooperative Thought process: Normal thought process present Assessment & Plan Assessment & Plan (1) H/O bacterial meningitis: Code(s): Z86.61 - Personal history of infections of the central nervous system Category: Medical (2) Difficulty balancing: Comment: Improved Code(s): R29.818 - Other symptoms and signs involving the nervous system Category: Medical (3) Deafness: Comment: strep pneumonia hearing loss Code(s): H91.90 - Unspecified hearing loss, unspecified ear Category: Medical Plan Plan Following persistent hearing loss from meningitis, schedule an MRI at [facility]. Monitor for seizures; EEG was normal. Maintain follow-up for neurological issues. Continue hearing support and assess integration improvement in daily activities. Follow-up with Dr. Aguila, ENT, as scheduled. Discussion Notes In our discussion, I reviewed the patient's current status regarding hearing loss and neurological sequelae from his previous meningitis. I emphasized the importance of an MRI at [facility] for further evaluation, given the presence of cochlear implants which previously implicated scheduling difficulties. 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 I ensured the patient was aware of setting follow-ups and reaching out should any new symptoms arise. The patient seemed satisfied with the current plan and was informed about proceeding with the scheduling and next steps in diagnostic evaluations. Patient was informed and verbally consented to the use of an ambient scribe for clinic note documentation during this visit. Patient Instructions - Schedule MRI at [facility] for further evaluation related to cochlear implants. - Continue monitoring for any concerning symptoms or seizure-like activities. - Follow-up in six months unless issues arise sooner. - Contact if in need of further assistance or appointment scheduling difficulties. - Ensure all relevant medical documentation (e.g., cochlear implant information) is accessible. - Ensure regular follow-ups with ENT for ongoing hearing loss management. - Continue integration of learned physical therapies into daily activities for improved balance. Orders: Orders MR head/brain wo/w con Today H91.90 - Unspecified hearing loss, unspecified ear, R29.818 - Other symptoms and signs involving the nervous system, Z86.61 - Personal history of infections of the central nervous system Coding Level of Care Code Est Pt Level 4 (32009) Diagnoses H/O bacterial meningitis Z86.61 Difficulty balancing R29.818 Deafness H91.90
[2024-07-12 13:12] VITALS: BP 160/100; PULSE 78; O2SAT 98
--- OUTSIDE RECORDS SUMMARY | 2024-07-12 16:05 | XMS_ITS | Data Portability ---
Author Organization [place] - [facility], Allergy Address [address] [place] [id number] Care Team Providers Care Information Security Specialist Name Role Phone MADY CAM Primary Care Provider [phone] Assessment No assessment recorded. Plan of Treatment Reminders Order Date Submit Date Provider Last Modified By Organization Details Last Modified Time Details Appointments Establish ed 10 2024 03:30P M GRICELDA SUN MD Not available Not available Not available Lab None recorded. Referral None recorded. Procedures None recorded. Surgeries None recorded. Imaging None recorded. Medication Orders None recorded. Patient TargetsNo targets recorded. Patient InstructionsNo instructions recorded. Reason for Referral None Reported. Results Created Date Observation Date Name Description Value Unit Range Abnormal Flag Note LastModifiedBy Organization Detail LastModifiedTime 10/19/19 24 10/14/2023 cochl ear impla nt progr ammin g* No observ ation record ed. Not Available 2023 15:20:09 12/29/19 24 06/13/2023 imagi ng/di agnos tic resul t No observ ation record ed. [email or web address] Not Available 19:11:17 12/29/19 24 06/13/2023 imagi ng/di agnos tic resul t No observ ation record ed. [email or web address] Not Available 19:11:21 12/29/19 24 06/13/2023 imagi ng/di agnos tic resul t No observ ation record ed. [email or web address] Not Available 19:11:22 12/29/19 24 06/29/2023 imagi ng/di agnos tic resul t No observ ation record ed. [email or web address] Not Available 19:11:55 12/29/19 24 06/29/2023 imagi ng/di agnos tic resul t No observ ation record ed. [email or web address] Not Available 19:12:01 12/29/19 24 07/06/2023 imagi ng/di agnos tic resul t No observ ation record ed. [email or web address] Not Available 19:12:11 12/29/19 24 07/15/2023 imagi ng/di agnos tic resul t No observ ation record ed. [email or web address] Not Available 19:12:20 12/29/19 24 07/15/2023 imagi ng/di agnos tic resul t No observ ation record ed. [email or web address] Not Available 19:12:23 Result Notes None recorded. Problems Name Problem SNOMED Code Status Onset Date Resolution Date Notes Provider Name and Address Organization Details Recorded Time Sensorine ural hearing loss 90369821 Active 2023 GRICELDA SUN MD [address] [place] [address], [place], [phone] , [facility] 4 16:51:40 Dizziness 587426611 Active 2023 GRICELDA SUN MD [address] [place] [address], [place], [phone] , [facility] 4 17:33:10 Weakness of face muscles 33261967 Active 2023 Facial weakness; Location: right Note : Date Diagnosed: 06/29/2023 11:44 AM (R29.810) Not Available [facility] 4 02:23:25 Sensorine ural hearing loss of bilateral ears 407341101 Active 2023 Sensorineu ral hearing loss, bilateral; Note: Date Diagnosed: 06/29/2023 11:44 AM (H90.3) Not Available [facility] 4 02:23:32 Pneumococ lambert meningiti s 40398333 Active 2023 Pneumococc al meningitis ; Note: Date Diagnosed: 06/29/2023 11:44 AM (G00.1) Not Available [facility] 02:23:40 Follow-up visit Active 2023 Medical surveillan ce following completed treatment; Note: Date Diagnosed: 07/22/2023 12:10 PM (Z09) Not Available [facility] 02:24:04 Sudden idiopathi c hearing loss 282278312 Active 2023 Sudden idiopathic hearing loss, bilateral; Note: Date Diagnosed: 06/29/2023 11:44 AM (H91.23) Not Available [facility] 02:24:04 Problem Notes None recorded. Procedures Surgical History Date Name Laterality Status Provider Name and Address Organization Details Recorded Time splenectomy completed Niecy Roberto [place] - [facility] 10/15/2023 16:02:01 Imaging Results Imaging Date Name Status LastModified by [facility] Details LastModified Time 10/14/2023 cochlear implant programming* completed Information not available 10/26/2023 15:20:09 06/13/2023 imaging/diagn ostic result completed Information not available 12/29/2023 19:11:17 06/13/2023 imaging/diagn ostic result completed Information not available 12/29/2023 19:11:21 06/13/2023 imaging/diagn ostic result completed Information not available 12/29/2023 19:11:22 06/29/2023 imaging/diagn ostic result completed Information not available 12/29/2023 19:11:55 06/29/2023 imaging/diagn ostic result completed Information not available 12/29/2023 19:12:01 07/06/2023 imaging/diagn ostic result completed Information not available 12/29/2023 19:12:11 07/15/2023 imaging/diagn ostic result completed Information not available 12/29/2023 19:12:20 07/15/2023 imaging/diagn ostic result completed Information not available 12/29/2023 19:12:23 Procedure Notes None recorded. Medical Equipment None Reported. Allergies Allergen ID Allergen Name Allergen Category Reaction Reaction Severity Criticality Documentation Date Start Date Code Code System Note Provider Name and Address Organization Details Recorded Time 618562 diazepam medicatio n other Not available Not available 12/11/2023 3322 RxNorm React ion: Unkno wn; Not Available [facility] 00:24:42 Medications Name Sig Start Date Stop Date Status Note LastModified by Organization Details LastModified Time prednison e 10 mg tablet 10/14 completed Not Available Not Available Not Available amlodipin e 5 mg tablet 10/14 completed Not Available Not Available Not Available ciproflox acin 500 mg tablet Take 1 tablet by mouth twice a day 10/14 completed Not Available Not Available Not Available tramadol 50 mg tablet active Medicatio n ID: [id number] Br and Name: tramadol Send Method: E-Prescri bed Subs Allowed: subs OK Medica tionGener icName: tramadol Not Available Not Available Not Available gabapenti n 100 mg capsule active Medicatio n ID: [id number] Br and Name: gabapenti n Send Method: E-Prescri bed Subs Allowed: subs OK Medica tionGener icName: gabapenti n Not Available Not Available Not Available oxycodone 5 mg tablet Take 1 tablet by mouth every six hours as needed for pain 10/14 completed Not Available Not Available Not Available amlodipin e 5 mg-valsar neumann 160 mg tablet active Medicatio n ID: [id number] Br and Name: amlodipin e-valsart an Send Method: E-Prescri bed Subs Allowed: subs OK Medica tionGener icName: amlodipin e-valsart an Not Available Not Available Not Available Vitals Date Recorded Body height Body mass index (BMI) Body weight Provider Name and Address Organization Details Last Updated DateTime 10/15/2023 177.8 cm 26.7 kg/m2 99568.18 g Niecy Roberto [place] - [facility] 10/15/2023 16:00:52 Social History None recorded. Functional Status None recorded. Mental Status None recorded. Family History Nothing Reported. Medical History Condition Response Hypertension Y Past Encounters Encounter ID Performer Location Encounter Start Date Encounter Closed Date Diagnosis/Indication Diagnosis SNOMED-CT Code Diagnosis ICD10 Code Diagnosis Note [id number] GRICELDA SUN MD [facility] [address] [phone] 10/15/2023 15:25:30 10/15/2023 16:57:06 Sensorineural hearing loss 97576111 H90.3 Cochlear p rosthesis in situ 670549560 Z96.21 Both cochlear implants are in good position and the sites are well-heale d. We discussed that his auditory function will likely continue to improve over time with continued use of the devices. He will continue to follow-up with Michelle Sands at the [facility] cochlear implant program for cochlear implant mapping. He will continue to work with his physical therapist with regards to improving his balance function. We discussed that this will also continue to improve over time as long as he continues to challenge his balance function. Recommend follow-up in 1 year, or earlier should he have any problems. Dizziness 207341711 R42 Health Concerns Section Related Observation LastModified by Organization Detai ls LastModified Time None Recorded Concern Status LastModified by Organization Details LastModified Time None Recorded Advance Directives Directive None Recorded Payers Encounter Date Sequence Insurance Name Policy Number Policy Tee Covered Member ID Tee Member ID Guarantor Name 10/15/2023 1 [place] [facility] Rajinder Palacio [id number] Rajinder Palacio Notes Date Note Type Note Provider Name and Address Organization Details Recorded Time 10/15/2023 text/html Status post bilateral simultaneous cochlear implant placement on July 15, 2023 following acute bilateral sensorineural hearing loss secondary to meningitis. Patient had a significant amount of intracochlear inflammatory material present at the time of surgery, but full bilateral electrode insertions were able to be achieved. He has bilateral Apalya CI 612 implants. He has been working with Michelle Sands at the [facility] cochlear implant program. He gets good auditory awareness bilaterally, left greater than right. He is still making slow progress with regards to speech understanding. His balance disturbance continues to improve with vestibular therapy. He is back to playing [employer] golf GRICELDA SUN MD [address] [place] [address], [phone], [facility] - [facility] 10/15/2023 17:37:36
--- OUTSIDE RECORDS SUMMARY | 2024-07-12 16:05 | XMS_ITS | Continuity of Care Document ---
Author Organization [facility] Address [address] [place] [id number]- Care Team Providers Care Engine Oiler Name Role Phone Lakesha YUAN, Liam Brantley Primary Care Physician Encounter [facility] Date(s): 05/12/24 - 07/08/[address] [id number] Encounter Diagnosis Other abnormalities of gait and mobility(Final) - Personal history of infections of the central nervous system(Final) - Discharge Disposition: A-D/C Home Attending Physician: Liam Crowder MD Admitting Physician: Liam Crowder MD Referring Physician: Liam Crowder MD Encounter Type: Disch Recurring OP Allergies, Adverse Reactions, Alerts Substance Criticality Severity Reaction Reaction Severity Status Valium HIVES Active Immunizations Given and Recorded Vaccine Date Status Refusal Reason SARS-CoV-2 mRNA ([id number]-[id number]) vax 1 07/13/23 Recorded Meningococcal Conjugate Vaccine 2 07/13/23 Recorde d pneumococcal 20-valent conjugate vaccine 07/07/23 Given influenza virus vaccine, inactivated 04/21/23 Give n influenza virus vaccine, inactivated 07/15/22 Give n tetanus/diphtheria/pertussis, acel(Tdap) 3 10/17/22 Given tetanus/diphtheria/pertussis, acel(Tdap) 06/11/13 Recorded SARS-CoV-2 (COVID-19) mRNA BNT-162b2 vac 08/21/20 Given SARS-CoV-2 (COVID-19) mRNA BNT-162b2 vac 07/31/20 Given Hepatitis B Vaccine (old term) 09/05/99 Recorded Hepatitis B Vaccine (old term) 06/07/99 Recorded Hepatitis B Vaccine (old term) 04/18/99 Recorded tetanus-diphtheria toxoids (Td) 12/12/97 Recorded Measles Virus Vaccine 10/24/94 Recorded Measles Virus Vaccine 11/20/83 Recorded Poliovirus Vaccine, Inactivated 02/17/84 Recorded Poliovirus Vaccine, Inactivated 02/18/83 Recorded Poliovirus Vaccine, Inactivated 82 Recorded Poliovirus Vaccine, Inactivated 82 Recorded diphtheria/tetanus/pertussis, acel(DTaP) 02/18/83 Recorded diphtheria/tetanus/pertussis, acel(DTaP) 82 Recorded diphtheria/tetanus/pertussis, acel(DTaP) 82 Recorded 1Result Comment: [facility] 2Result Comment: Meningococcal MCV40 vaccine from [facility] pharmacy 3Result Comment: [facility]-[id number] Medications amlodipine-valsartan 5 mg-160 mg oral tablet 1 tablet, By Mouth, Daily, # 90 tablet, 3 Refills, Maintenance, 12/16/23 9:03:00 AM EDT, [facility], 90, TAKE 1 TABLET BY MOUTH EVERY DAY, 178, cm, 11/19/23 9:55:00 EDT, Height, 83, kg, 07/15/23 6:30:00 EST, Dry Weight Start Date: 12/16/23 Status: Ordered Quantity: 90.0 Unit: tablet Repeat number: 1 Problem List Condition Confirmation Course Effective Dates Status H ealth Status Informant Cochlear implant status Confirmed Active H/O fracture of wrist Confirmed Active Hyperglycemia Confirmed Active Hyperlipidemia Confirmed Active Impaired fasting glucose Confirmed Active Infectious mononucleosis Confirmed Active Overweight Confirmed Active Social History Social History Type Response Smoking Status Never (less than 100 in lifetime) entered on: 10/01/18 Sex Sex Representation Male (finding) Patient Care team information Care Team Personnel Name: Liam Crowder MD Position: S Physician - Primary Care Member Role: PCP Address: [address] [place] [address]- Telecom: Care Team Related Persons Name: LUCÍA SRINIVASAN Name: JOHNNY SRINIVASAN Insurance Providers Guarantor name: EFFIE SRINIVASAN Health Plan Information #: 1 Payer: O [employer] Member Number: [id number] Policy Number: FESTUS Group Number: [id number] Health Plan Information #: 2 Payer: HMO BL[employer] NETWORK Member Number: [id number] Policy Number: FESTUS Group Number: [id number]
--- OUTSIDE RECORDS SUMMARY | 2024-07-12 16:05 | XMS_ITS | Continuity of Care Document ---
Author Organization [facility] lt Address [address] [place] [address]- Care Team Providers Care Physician Intensivist Name Role Phone Lakesha YUAN, Liam Brantley Primary Care Physician Encounter [facility] Date(s): 05/12/24 - 06/11/24 [facility] Adult [address] [place] [address]- Encounter Type: Triage Allergies, Adverse Reactions, Alerts Substance Criticality Severity Reaction Reaction Severity Status Valium HIVES Active Immunizations Given and Recorded Vaccine Date Status Refusal Reason SARS-CoV-2 mRNA ([id number]-ngnz-gmdly) vax 1 07/13/23 Recorded Meningococcal Conjugate Vaccine [...] Recorded diphtheria/tetanus/pertussis, acel(DTaP) 82 Recorded 1Result Comment: [facility] pharmacy 2Result Comment: Meningococcal MCV40 vaccine from [facility] pharmacy 3Result Comment: [facility]-[id number] Medications amlodipine-valsartan 5 mg-160 mg oral tablet 1 tablet, By Mouth, Daily, # 90 tablet, 3 Refills, Maintenance, 12/16/23 9:03:00 AM EDT, [facility] STORE [address]226, 90, TAKE 1 TABLET BY MOUTH EVERY [...] Care team information Care Team Personnel Name: Lakesha YUAN, Liam Brantley Position: S Physician - Primary Care Member Role: PCP Address: [address] [place] [id number] Telecom: Care Team Related Persons Name: LUCÍA SRINIVASAN Name: JOHNNY SRINIVASAN Insurance Providers Guarantor name: EFFIE SRINIVASAN Health Plan Information #: 1 Payer: HMO BL[employer] NETWORK Member Number: NA Policy Number: NA Group Number: NA
== END 2024-07-12 13:48 | disposition home or self-care (01) ==
PROVIDERS: PCP Internal Medicine; Visit Provider Nurse Practitioner Family
DX: Z86.61 Personal history of infections of the central nervous system (principal); R29.818 Other symptoms and signs involving the nervous system; H91.90 Unspecified hearing loss, unspecified ear
CPT/HCPCS: 99214

== ENCOUNTER → 2024-07-12 12:58 | Outpatient (BNVA) | payer BC, SELFPAY | PROVIDERS: PCP Internal Medicine; Visit Provider Nurse Practitioner Family ==